=== PATIENT | female | born 1975 | race African-American/Black ===

== ENCOUNTER 2016-08-10 18:49 | Emergency (ER) | payer MEDICAID, OTHER ==
[~2016-08-10] VITALS: Ht 157.5 cm; Wt 145.0 kg
[~2016-08-10 18:49] MED LIST: CARV3.125 PO; FERR324T4 PO; GUAI600 PO; HYDR-2768 PO; LEVA750T PO; NIFE1TAB85 PO; PRAV40 PO; PRED20 PO; SYMB160A INH
[2016-08-10 18:52] VITALS: BP 193/110; PULSE 105; RESP 28; TEMP 98; O2SAT 98
--- NOTE | 2016-08-10 19:25 | PD ---
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 Patient states she has had her menstrual cycle since July 30 which is atypical for her. It has been heavy with significant cramping since it began on the but it has become severe over the last 2-3 days. Patient has had some urinary frequency and urgency. States she has never had pain like this before. Pain is a 10 out of 10, sharp, stabbing. She has no other abdominal surgeries. No other symptoms to report. PFSH Past Medical History Anemia: Yes Asthma: Yes Blood Disorders: No Heart Rhythm Problems: No Cancer: No Cardiovascular Problems: Yes High Cholesterol: No Chemotherapy: No Chest Pain: Yes Congestive Heart Failure: No COPD: No Diabetes: No Diminished Hearing: No Endocrine: No Genitourinary: Yes (gerd) Hypertension: Yes Immune Disorder: No Musculoskeletal: No Neurologic: No Psychiatric: No Reproductive: No Respiratory: No Immunizations Current: Yes Radiation Therapy: No Sleep Apnea: No Thyroid Disease: No : 2 Para: 2 Tubal Ligation: Yes Past Surgical History Section: Yes Gynecologic Surgery: Yes (CSECTION) Social History Alcohol Use: No Tobacco Use: No Substance Use: No Allergies-Medications (Allergen,Severity, Reaction): Coded Allergies: No Known Allergies (Unverified , 08/10/16) Reported Meds & Prescriptions Reported Meds & Active Scripts Active Physical Exam Narrative GENERAL: Obese female patient, ambulatory and in mild distress, tearful, secondary to pain SKIN: Warm and dry. HEAD: Atraumatic. Normocephalic. EYES: Pupils equal and round. No scleral icterus. No injection or drainage. ENT: No nasal bleeding or discharge. Mucous membranes pink and moist. NECK: Tachypneic midline. No JVD. CARDIOVASCULAR: Tachycardic rate and rhythm. No murmur appreciated. RESPIRATORY: No accessory muscle use. Diminished to auscultation. Breath sounds equal bilaterally. GASTROINTESTINAL: Abdomen rotund, soft, nondistended. Right lower quadrant and suprapubic tenderness to palpation. Hepatic and splenic margins not palpable. MUSCULOSKELETAL: No obvious deformities. No clubbing. No cyanosis. No edema. NEUROLOGICAL: Awake and alert. No obvious cranial nerve deficits. Motor grossly within normal limits. Normal speech. PSYCHIATRIC: Appropriate mood and affect; insight and judgment normal. Data Data Last Documented VS Vital Signs Date Time Temp Pulse Resp B/P Pulse Ox O2 Delivery O2 Flow Rate FiO2 08/10/16 19:51 100 20 08/10/16 18:52 98.0 193/110 98 Room Air Orders Beta Hcg (Quant/Titer) (08/10/16 19:22) Complete Blood Count With Diff (08/10/16 19:22) Comprehensive Metabolic Panel (08/10/16 19:22) Lipase (08/10/16 19:22) Prothrombin Time / Inr (Pt) (08/10/16:22) Act Partial Throm Time (Ptt) (08/10/16 19:22) Urinalysis - C+S If Indicated (08/10/16 19:22) Electrocardiogram (08/10/16 19:22) Ed Urine Pregnancytest Poc (08/10/16 19:22) Type And Screen (08/10/16 19:25) [facility] Medical Decision Making Medical Screen Exam Complete: Yes Emergency Medical Condition: Yes Medical Record Reviewed: Yes Differential Diagnosis Ectopic versus ovarian cyst versus ovarian torsion versus UTI versus renal calculi versus dysmenorrhea Narrative Course 40-year-old female presents to emergency department for evaluation. Workup was initiated in triage. Once a medical bed becomes available, patient will be transferred and care assumed by the provider. Condition: Stable Mary Fuentes Aug 10, 2016 19:25
[2016-08-10 20:23] LABS: AUTOMATED NEUTROPHIL # 8.7 TH/MM3 (1.8-7.7); BASOPHIL % 0.3 % (0.0-2.0); EOSINOPHIL # 0.1 TH/MM3 (0-0.4); HEMATOCRIT 30.6 % (35.0-46.0); LYMPH % 18.8 % (9.0-44.0); LYMPHOCYTE # 2.2 TH/MM3 (1.0-4.8); MEAN CELL VOLUME 78.2 FL (80.0-100.0); MEAN CORPUSCULAR HEMOGLOBIN 24.9 PG (27.0-34.0); MEAN CORPUSCULAR HGB CONC 31.8 % (32.0-36.0); MONO % 5.9 % (0.0-8.0); PLATELET COUNT 390 TH/MM3 (150-450); RED BLOOD COUNT 3.91 MIL/MM3 (4.00-5.30); RED CELL DISTRIBUTION WIDTH 17.2 % (11.6-17.2); WHITE BLOOD COUNT 11.7 TH/MM3 (4.0-11.0)
[2016-08-10 20:26] LABS: HEMO FLAGS AUTO DIFF
[2016-08-10 20:33] LABS: BLOOD, URINE LARGE (NEG); COMMENT (UR) CULTURE INDICATED; CULTURE IF INDICATED CULTURE INDICATED; GLUCOSE,URINE NEG (NEG); KETONE, URINE TRACE mg/dL (NEG); MUCUS URINE FEW /lpf (OCC); NITRITE,URINE NEG (NEG); PH, URINE 5.5 (5.0-8.5)
[2016-08-10 20:34] LABS: URINE COLOR RED (YELLW/STRAW)
[2016-08-10 20:40] LABS: APTT (PATIENT) 26.7 SEC (24.3-30.1); PROTHROMBIN TIME - PATIENT 10.7 SEC (9.8-11.6)
[2016-08-10 20:44] LABS: ANION GAP 7 MEQ/L (5-15); AST (GOT) 11 U/L (15-37); BICARBONATE 26.8 MEQ/L (21.0-32.0); BLOOD UREA NITROGEN 11 MG/DL (7-18); CHLORIDE 106 MEQ/L (98-107); GLOMERULAR FILTRATION RATE 70 ML/MIN (>89); POTASSIUM 3.6 MEQ/L (3.5-5.1); SODIUM (NA) 140 MEQ/L (136-145)
[2016-08-10] MEDS ORDERED: HYDROmorphone HCL PF 1 MG/ML VIAL IV PUSH ONE (20:45)
[2016-08-10 20:49] LABS: ALKALINE PHOSPHATASE 84 U/L (45-117); ALT (GPT) 18 U/L (10-53); BETA HCG QUANT LESS THAN 1 MIU/ML (0-5); TOTAL BILIRUBIN ADULT 0.2 MG/DL (0.2-1.0)
[2016-08-10 20:57] LABS: SCAN/DIFF AUTO DIFF CONFIRMED
[2016-08-10] MEDS ORDERED: IOHEXOL 350 MG/ML 10 ML VIAL (for RAD DIAG) IV ONE (21:16)
--- NOTE | 2016-08-10 21:24 | RADRPT ---
EXAM DATE/TIME: 08/10/2016 21:03 [facility] COMPARISON: No previous studies available for comparison. INDICATIONS : Right lower quadrant pain for two weeks IV CONTRAST: 95 cc Omnipaque 350 (iohexol) IV ORAL CONTRAST: No oral contrast ingested. RADIATION DOSE: 44.31 CTDIvol (mGy) MEDICAL HISTORY : Cardiovascular disease. Hypertension. Asthma. SURGICAL HISTORY : section. Tubal ligation. ENCOUNTER: Initial ACUITY: 2 weeks PAIN SCALE: 10/10 LOCATION: Right lower quadrant TECHNIQUE: Volumetric scanning of the abdomen and pelvis was performed. Using automated exposure control and ad justment of the mA and/or kV according to patient size, radiation dose was kept as low as reasonably achievable to obtain optimal diagnostic quality images. FINDINGS: LOWER LUNGS: The visualized lower lungs are clear. LIVER: Homogeneous density without lesion. There is no dilation of the biliary tree. No calcified gallston es. SPLEEN: Normal size without lesion. PANCREAS: Within normal limits. KIDNEYS: Normal in size and shape. There is no mass, stone or hydronephrosis. ADRENAL GLANDS: Within normal limits. VASCULAR: There is no aortic aneurysm. BOWEL/MESENTERY: There is moderate right and left-sided diverticulosis of the colon. No acute inflammatory changes are seen. The appendix is well-visualized, normal. ABDOMINAL WALL: Within normal limits. RETROPERITONEUM: There is no lymphadenopathy. BLADDER: No wall thickening or mass. REPRODUCTIVE: There is fluid in the uterine cavity. 2.6 cm cyst seen of the left ovary. There is no free fluid in t he pelvic cavity. INGUINAL: There is no lymphadenopathy or hernia. MUSCULOSKELETAL: No acute bony abnormality seen. CONCLUSION: 1. No acute abnormality seen within the abdomen or pelvis. 2. Moderate diffuse diverticulosis of the colon. No diverticulitis. 3. Normal appendix. 4. 2.6 cm benign appearing cyst of the left ovary. Nonspecific fluid in the uterine cavity. Michael Davalos MD on August 10, 2016 at 21:20 Board Certified Radiologist. This report was verified electronically.
--- NOTE | 2016-08-10 21:24 | PD ---
Data Data Last Documented VS Vital Signs Date Time Temp Pulse Resp B/P Pulse Ox O2 Delivery O2 Flow Rate FiO2 08/10/16 21:56 94 18 145/89 96 Room Air 08/10/16 18:52 98.0 Orders Beta Hcg (Quant/Titer) (08/10/16 19:22) Complete Blood Count With Diff (08/10/16 19:22) Comprehensive Metabolic Panel (08/10/16 19:22) Lipase (08/10/16 19:22) Prothrombin Time / Inr (Pt) (08/10/16 19:22) Act Partial Throm Time (Ptt) (08/10/16 19:22) Urinalysis - C+S If Indicated (08/10/16:22) Electrocardiogram (08/10/16:) Ed Urine Pregnancytest Poc (08/10/16 19:22) Type And Screen (08/10/16 19:25) Urine Culture (08/10/16 20:00) Hydromorphone Pf Inj (Dilaudid Pf Inj) (08/10/16 20:45) Ct Abd/Pel W Iv Contrast(Rout) (08/10/16 20:52) Iohexol 350 Inj (Omnipaque 350 Inj) (08/10/16 21:16) Us Pelvis Comp W Doppler (08/10/16 ) Labs Laboratory Tests Test 08/10/16 20:00 White Blood Count 11.7 TH/MM3 Red Blood Count 3.91 MIL/MM3 Hemoglobin 9.7 GM/DL Hematocrit 30.6 % Mean Corpuscular Volume 78.2 FL Mean Corpuscular Hemoglobin 24.9 PG Mean Corpuscular Hemoglobin 31.8 % Concent Red Cell Distribution Width 17.2 % Platelet Count 390 TH/MM3 Mean Platelet Volume 8.6 FL Neutrophils (%) (Auto) 74.0 % Lymphocytes (%) (Auto) 18.8 % Monocytes (%) (Auto) 5.9 % Eosinophils (%) (Auto) 1.0 % Basophils (%) (Auto) 0.3 % Neutrophils # (Auto) 8.7 TH/MM3 Lymphocytes # (Auto) 2.2 TH/MM3 Monocytes # (Auto) 0.7 TH/MM3 Eosinophils # (Auto) 0.1 TH/MM3 Basophils # (Auto) 0.0 TH/MM3 CBC Comment AUTO DIFF Differential Comment AUTO DIFF CONFIRMED Prothrombin Time 10.7 SEC Prothromb Time International 1.0 RATIO Ratio Activated Partial 26.7 SEC Thromboplast Time Urine Color RED Urine Turbidity HAZY Urine pH 5.5 Urine Specific [place] 1.021 Urine Protein 100 mg/dL Urine Glucose (UA) NEG mg/dL Urine Ketones TRACE mg/dL Urine Occult Blood LARGE Urine Nitrite NEG Urine Bilirubin NEG Urine Urobilinogen LESS THAN 2.0 MG/DL Urine Leukocyte Esterase MOD Urine RBC /hpf Urine WBC 36 /hpf Urine Mucus FEW /lpf Microscopic Urinalysis Comment CULTURE INDICATED Sodium Level 140 MEQ/L Potassium Level 3.6 MEQ/L Chloride Level 106 MEQ/L Carbon Dioxide Level 26.8 MEQ/L Anion Gap 7 MEQ/L Blood Urea Nitrogen 11 MG/DL Creatinine 1.05 MG/DL Estimat Glomerular Filtration 70 ML/MIN Rate Random Glucose 92 MG/DL Calcium Level 8.7 MG/DL Total Bilirubin 0.2 MG/DL Aspartate Amino Transf 11 U/L (AST/SGOT) Alanine Aminotransferase 18 U/L (ALT/SGPT) Alkaline Phosphatase 84 U/L Total Protein 8.0 GM/DL Albumin 3.4 GM/DL Lipase 167 U/L Human Chorionic Gonadotropin, LESS THAN 1 Quant MIU/ML Blood Type O POSITIVE Antibody Screen NEGATIVE Blood Bank Comment [facility] Medical Record Reviewed: Yes Supervised Visit with CLEO: Yes Narrative Course I, Dr. Martin, have reviewed the advance practice practitioner's documentation and am in agreement, met with the patient face to face, made the diagnosis, and the medical decision making was done by me. *My assessment and Findings: The patient reports vaginal bleeding for 11 days. She uses a tampon and a pad at the same time and uses approx 6 per day. 3 days of severe RLQ pain is reported preceded by several days of mild pain. No n/v/d. Decreased oral intake 2/2 pain. Depoprovera shot given 6 weeks prior for hx menometrorrhagia. Due to persistent bleeding patient is a candidate for hysterectomy according to her engineering associate in [place], Dr Perez. Pt has follow up established with Dr Perez. Pt denies fever. CBC & BMP Diagram 08/10/16 20:00 LFTs are normal Lipase normal Beta hCG less than 1 Urinalysis reveals hematuria without UTI Coags normal Diagnosis Primary Impression: Uterine fibroid Qualified Code: D25.9 - Uterine leiomyoma, unspecified location Additional Impressions: Vaginal bleeding Right ovarian cyst Referrals: [facility] 2 days Additional Instruction: You have a choice when it comes to health care, and we are glad that you chose [email or web address]. Hopefully, we have met your expectations on today's visit. You are welcome to return to [email or web address] at any time, as we are committed to meeting the health care needs of our community. Med/Other Pt SpecificInfo: Prescription(s) given Scripts Hydrocodone-Acetaminophen (Lortab)7.5-325 Mg Tab1-2 Tab PO Q6H PRN (PAIN SCALE 6 TO 10) #15 TAB Ref 0 Prov:Damon Martin MD 08/10/16 Disposition: 01 DISCHARGE HOME Condition: Stable Damon Martin MD Aug 10, 2016 21:24
[2016-08-10 21:56] VITALS: BP 145/89; PULSE 94; RESP 18; O2SAT 96
--- NOTE | 2016-08-10 22:20 | RADRPT ---
EXAM DATE/TIME: 08/10/2016 21:30 [facility] COMPARISON: No previous studies available for comparison. INDICATIONS : Pelvic pain and bleeding. MEDICAL HISTORY : Hypertension. Gastroesophageal reflux disease. SURGICAL HISTORY : Tubal ligation. section. ENCOUNTER: Initial ACUITY: 3 days PAIN SCORE: 5/10 LOCATION: Bilateral pelvis MEASUREMENTS: UTERUS: 16.4 x 7.5 x 8.5 cm ENDOMETRIAL STRIPE: 11 mm RIGHT OVARY: 2.8 x 2.6 x 2.5 cm LEFT OVARY: 4.2 x 3.1 x 3.4 cm FINDINGS: UTERUS: 2.4 cm subserosal fibroid of the body. There are small nabothian cysts of the lower uterine segment/c ervix. RIGHT OVARY: Ovary contains no mass or significant cystic lesion. LEFT OVARY: 2.2 cm simple cyst. MISCELLANEOUS: No free fluid. CONCLUSION: 1. Small uterine fibroid 2. Simple, benign appearing cyst of the right ovary. Michael Davalos MD on August 10, 2016 at 22:16 Board Certified Radiologist. This report was verified electronically.
--- NOTE | 2016-08-10 22:22 | EKG ---
Date Performed: 08/10/2016 Time Performed: 20:20:05 PTAGE: 40 years EKG: Sinus rhythm MINIMAL VOLTAGE CRITERIA FOR LVH, CONSIDER NORMAL VARIANT BORDERLINE ECG PREVIOUS TRACING : 03/16/2016 21.54 Compared to prior tracing no significant change DOCTOR: Evan Martin Interpretating Date/Time 08/10/2016 22:20:17
[2016-08-10] MEDS ORDERED: HYDR-3534 PO (22:41)
== END 2016-08-10 23:24 | disposition home or self-care (01) ==
LOC: NEPC 18:49
DX: D25.9 Leiomyoma of uterus, unspecified (principal); N93.9 Abnormal uterine and vaginal bleeding, unspecified; N83.201 Unspecified ovarian cyst, right side; I10 Essential (primary) hypertension; J45.909 Unspecified asthma, uncomplicated; K21.9 Gastro-esophageal reflux disease without esophagitis; D64.9 Anemia, unspecified; R00.0 Tachycardia, unspecified
CPT/HCPCS: 74177; 76856; 80053; 81001; 83690; 84702; 84703; 85025; 85610; 85730; 86850; 86900; 86901; 87086; 93005; 93975; 96374; 99284; J1170; Q9967

== ENCOUNTER 2016-10-25 14:43 | Emergency (ER) | payer OTHER ==
[~2016-10-25] VITALS: Ht 162.6 cm; Wt 153.5 kg
[~2016-10-25 14:43] MED LIST changes: -CARV3.125 PO; -FERR324T4 PO; -GUAI600 PO; -HYDR-2768 PO; +HYDR-3534 PO; -LEVA750T PO; -NIFE1TAB85 PO; -PRAV40 PO; -PRED20 PO; -SYMB160A INH
[2016-10-25 14:45] VITALS: BP 198/101; PULSE 89; RESP 18; TEMP 98.2; O2SAT 99
--- NOTE | 2016-10-25 15:31 | PD ---
HPI . eye irritation (left) Chief Complaint: Eye Problems/Injury Time Seen by Provider: 15:31 Travel History International Travel<30 days: No Contact w/Intl Traveler<30days: No Traveled to known affect area: No History of Present Illness HPI 40-year-old female here with complaints of left eye irritation. Patient says that she thinks something got into her eye and started causing some irritation. She is uncertain if anything actually got in there. She denies any foreign body sensation. She decided to come to the emergency department because around 2:00pm her eyes started getting red and swollen. She denies any vision changes or pain. PFSH Past Medical History Anemia: Yes Asthma: Yes Blood Disorders: No Heart Rhythm Problems: No Cancer: No Cardiovascular Problems: Yes High Cholesterol: No Chemotherapy: No Chest Pain: Yes Congestive Heart Failure: No COPD: No Diabetes: No Diminished Hearing: No Endocrine: No Genitourinary: Yes (gerd) Hypertension: Yes Immune Disorder: No Musculoskeletal: No Neurologic: No Psychiatric: No Reproductive: No Respiratory: No Immunizations Current: Yes Radiation Therapy: No Sleep Apnea: No Thyroid Disease: No ?: Not LMP: 07/2016 : 2 Para: 2 Tubal Ligation: Yes Past Surgical History Section: Yes Gynecologic Surgery: Yes (CSECTION) Social History Alcohol Use: No Tobacco Use: No Substance Use: No Allergies-Medications (Allergen,Severity, Reaction): Coded Allergies: Tramadol (Verified Allergy, Severe, ITCHING, 10/25/16) Reported Meds & Prescriptions Reported Meds & Active Scripts Active Erythromycin Opth Oint 5 Mg/Gm Oint 1 Applic LEFT EYE BID 5 Days Reported Lisinopril 10 Mg Tab 10 Mg PO DAILY Review of Systems General / Constitutional: No: Fever Eyes: Positive: Redness, Tearing, No: Visual changes HENT: No: Headaches Cardiovascular: No: Chest Pain or Discomfort Respiratory: No: Shortness of Breath Gastrointestinal: No: Abdominal Pain Genitourinary: No: Dysuria Musculoskeletal: No: Pain Skin: No Rash Neurologic: No: Weakness Psychiatric: No: Depression Endocrine: No: Polydipsia Hematologic/Lymphatic: No: Easy Bruising Physical Exam Narrative GENERAL: AAO x 3, no acute distress, Well-nourished, well-developed patient. SKIN: Warm and dry. No visible rashes or bruising. HEAD: Normocephalic and atraumatic. EYES: No scleral icterus. EOM intact, PERRLA, Left eye erythematous, no fb seen , eye staining no corneal abrasion, there is some injection of the left eye and clear drainage on exam ENT: No nasal drainage noted. Mucous membranes pink. Airway patent. NECK: Supple, trachea midline. No JVD. CARDIOVASCULAR: Regular rate and rhythm without murmurs, gallops, or rubs. RESPIRATORY: Breath sounds equal bilaterally. No accessory muscle use. No rhonchi or rales. GASTROINTESTINAL: Abdomen soft, non-tender, nondistended. EXTREMITIES: No cyanosis or edema. BACK: Nontender without obvious deformity. No CVA tenderness. PSYCH: AAO x 3, normal affect. Data Data Last Documented VS Vital Signs Date Time Temp Pulse Resp B/P Pulse Ox O2 Delivery O2 Flow Rate FiO2 10/25/16 17:23 196/93 10/25/16 14:45 98.2 89 18 99 Orders Eye Irrigation (10/25/16 15:46) MDM Medical Decision Making Medical Screen Exam Complete: Yes Emergency Medical Condition: Yes Medical Record Reviewed: Yes Differential Diagnosis conjunctivitis, fb, less likely corneal abrasion Narrative Course 40-year-old female here with complaints of left eye irritation. Patient says that she thinks something got into her eye and started causing some irritation. She is uncertain if anything actually got in there. She denies any foreign body sensation. She decided to come to the emergency department because around 2:00pm her eyes started getting red and swollen. She denies any vision changes or pain. Patient seen and examined. She does have some erythema, injection and tearing from her left eye. Eye examination performed and no foreign body visualized. Eye staining performed and there is no corneal abrasion. Recommend eye irrigation. 1715: patient states eye feels much better I will discharge home with some eye antibiotics to cover for conjunctivitis. I recommend follow-up with an electrochemist in the next 3-5 days, if her symptoms persist. Patient verbalized understanding of instructions, questions were answered, and thanked me for their care. I advised them if their condition worsens, please return to the nearest emergency room for further care. Procedures Procedure Narrative Fluorescein eye staining procedure: Left eye proparacaine drops instilled into the left eye Local anesthesia was accomplished. the eye was inspected for any type of obvious foreign body: None seen fluorescein stain was applied to look for corneal abrasion: None seen Diagnosis Primary Impression: Conjunctivitis Qualified Code: H10.32 - Acute conjunctivitis of left eye, unspecified acute conjunctivitis type Patient Instructions: General Instructions Additional Instructions: Please return to emergency department if your symptoms return or worsen. Follow up with your primary care provider. Take medications as prescribed. Please see an electrochemist in the next 3-5 days, if your symptoms do not improve. Return to the emergency department if your vision worsens or if you develop sudden onset of eye pain. Med/Other Pt SpecificInfo: Prescription(s) given Scripts Erythromycin Opth Oint 5 Mg/Gm Oint1 Applic LEFT EYE BID 5 Days Ref 0 Prov:Aniya Stauffer DO 10/25/16 Disposition: 01 DISCHARGE HOME Condition: Stable Roxanne Cisneros October 25, 2016 15:31
[2016-10-25] MEDS ORDERED: LISI10TA3 PO (15:39)
[2016-10-25] MEDS ORDERED: ERYTOIN10 LEFT EYE (17:14)
[2016-10-25 17:23] VITALS: BP 196/93
== END 2016-10-25 17:16 | disposition home or self-care (01) ==
LOC: NEPK 14:43
DX: H10.32 Unspecified acute conjunctivitis, left eye (principal); D64.9 Anemia, unspecified; J45.909 Unspecified asthma, uncomplicated; I10 Essential (primary) hypertension
CPT/HCPCS: 99283

== ENCOUNTER 2017-04-06 23:35 | Emergency (ER) | payer OTHER ==
[~2017-04-06] VITALS: Ht 162.6 cm; Wt 152.0 kg
[~2017-04-06 23:35] MED LIST changes: +ERYTOIN10 LEFT EYE; -HYDR-3534 PO; +LISI10TA3 PO
[2017-04-06 23:37] VITALS: BP 165/83; PULSE 100; RESP 16; TEMP 98.9; O2SAT 98
[2017-04-07 00:24] LABS: BACTERIA, URINE RARE /hpf; BLOOD, URINE MOD (NEG); COMMENT (UR) CULT NOT INDICATED; CULTURE IF INDICATED CULT NOT INDICATED; GLUCOSE,URINE NEG (NEG); KETONE, URINE NEG (NEG); MUCUS URINE FEW /lpf (OCC); NITRITE,URINE NEG (NEG); PH, URINE 5.5 (5.0-8.5); SQUAMOUS EPITHELIAL CELL URINE 7 /hpf (0-5); URINE COLOR YELLOW (YELLW/STRAW)
--- NOTE | 2017-04-07 00:45 | PD ---
HPI Chief Complaint: Flank/Kidney Pain Time Seen by Provider: 00:32 Travel History International Travel<30 days: No Contact w/Intl Traveler<30days: No Traveled to known affect area: No History of Present Illness HPI Patient is a 41-year-old female presents emergency Department with right flank pain radiating up into her right shoulder and down into her right groin. Patient states that she's also been having some dysuria at the end of her stream. Denies any blood in the urine denies any fevers denies any vomiting. She does endorse mild nausea. States symptoms been going on-and-off for a few weeks. That fairly severe tonight but on arrival to emergency department is somewhat resolving. States she's never had this pain prior to a few weeks ago. Denies any abdominal surgeries denies any chest pain shortness of breath vomiting or diarrhea or constipation. Symptoms are mild, waxing and waning, for the past few weeks. Right flank. PFSH Past Medical History Anemia: Yes Asthma: Yes Blood Disorders: No Heart Rhythm Problems: No Cancer: No Cardiovascular Problems: Yes High Cholesterol: No Chemotherapy: No Chest Pain: Yes Congestive Heart Failure: No COPD: No Diabetes: No Diminished Hearing: No Endocrine: No Genitourinary: Yes (gerd) Hypertension: Yes Immune Disorder: No Musculoskeletal: No Neurologic: No Psychiatric: No Reproductive: No Respiratory: No Immunizations Current: Yes Radiation Therapy: No Sleep Apnea: No Thyroid Disease: No Tetanus Vaccination: < 5 Years Influenza Vaccination: No ?: Not : 2 Para: 2 Tubal Ligation: Yes Past Surgical History Section: Yes Gynecologic Surgery: Yes (CSECTION) Other Surgery: No Social History Alcohol Use: No Tobacco Use: No Substance Use: No Allergies-Medications (Allergen,Severity, Reaction): Coded Allergies: tramadol (Verified Allergy, Severe, ITCHING, 04/06/17) Reported Meds & Prescriptions Reported Meds & Active Scripts Active Flexeril (Cyclobenzaprine HCl) 10 Mg Tab 10 Mg PO TID Reported Ferrous Sulfate 325 Mg (65 Mg Iron) Tablet 325 Mg PO TIDPC Amlodipine (Amlodipine Besylate) 5 Mg Tab 5 Mg PO DAILY Review of Systems Except as stated in HPI: all other systems reviewed are Neg Physical Exam Narrative GENERAL: Well-developed well-nourished, morbidly obese less than female in no obvious distress. SKIN: Focused skin assessment warm/dry. HEAD: Atraumatic. Normocephalic. EYES: Pupils equal and round. No scleral icterus. No injection or drainage. ENT: No nasal bleeding or discharge. Mucous membranes pink and moist. NECK: Trachea midline. No JVD. CARDIOVASCULAR: Regular rate and rhythm. No murmur appreciated. RESPIRATORY: No accessory muscle use. Clear to auscultation. Breath sounds equal bilaterally. GASTROINTESTINAL: Abdomen soft, non-tender, nondistended. Hepatic and splenic margins not palpable. Donaldson sign negative, no rebound no percussive tenderness , no CVA tenderness. No masses felt no hepatosplenomegaly. MUSCULOSKELETAL: No obvious deformities. No clubbing. No cyanosis. No edema. NEUROLOGICAL: Awake and alert. No obvious cranial nerve deficits. Motor grossly within normal limits. Normal speech. PSYCHIATRIC: Appropriate mood and affect; insight and judgment normal. Data Data Last Documented VS Vital Signs Date Time Temp Pulse Resp B/P (MAP) Pulse Ox O2 Delivery O2 Flow Rate FiO2 04/07/17 05:12 04/07/17 01:08 20 99 Room Air 04/06/17 23:37 98.9 100 Orders Orders Urinalysis - C+S If Indicated (04/06/17 23:51) Complete Blood Count With Diff (04/07/17 00:53) Comprehensive Metabolic Panel (04/07/17 00:53) Lipase (04/07/17 00:53) Iv Access Insert/Monitor (04/07/17 00:53) Ecg Monitoring (04/07/17 00:53) Oximetry (04/07/17 00:53) Sodium Chloride 0.9% Flush (Ns Flush) (04/07/17 01:00) Ketorolac Inj (Toradol Inj) (04/07/17 01:00) Ct Abd/Pel W Iv Contrast(Rout) (04/07/17 ) Iohexol 350 Inj (Omnipaque 350 Inj) (04/07/17 02:55) Ed Discharge Order (04/07/17 04:08) Labs Laboratory Tests Test 04/06/17 23:57 04/07/17 00:45 Urine Color YELLOW Urine Turbidity HAZY Urine pH 5.5 Urine Specific [place] 1.028 Urine Protein TRACE mg/dL Urine Glucose (UA) NEG mg/dL Urine Ketones NEG mg/dL Urine Occult Blood MOD Urine Nitrite NEG Urine Bilirubin NEG Urine Urobilinogen 2.0 MG/DL Urine Leukocyte Esterase NEG Urine RBC LESS THAN 1 /hpf Urine WBC 5 /hpf Urine Squamous Epithelial Cells 7 /hpf Urine Bacteria RARE /hpf Urine Mucus FEW /lpf Microscopic Urinalysis Comment CULT NOT INDICATED White Blood Count 10.0 TH/MM3 Red Blood Count 4.85 MIL/MM3 Hemoglobin 11.8 GM/DL Hematocrit 36.2 % Mean Corpuscular Volume 74.7 FL Mean Corpuscular Hemoglobin 24.4 PG Mean Corpuscular Hemoglobin Concent 32.7 % Red Cell Distribution Width 19.2 % Platelet Count 370 TH/MM3 Mean Platelet Volume 8.6 FL Neutrophils (%) (Auto) 74.6 % Lymphocytes (%) (Auto) 18.4 % Monocytes (%) (Auto) 4.1 % Eosinophils (%) (Auto) 2.5 % Basophils (%) (Auto) 0.4 % Neutrophils # (Auto) 7.5 TH/MM3 Lymphocytes # (Auto) 1.8 TH/MM3 Monocytes # (Auto) 0.4 TH/MM3 Eosinophils # (Auto) 0.3 TH/MM3 Basophils # (Auto) 0.0 TH/MM3 CBC Comment DIFF FINAL Differential Comment Blood Urea Nitrogen 14 MG/DL Creatinine 1.33 MG/DL Random Glucose 129 MG/DL Total Protein 7.8 GM/DL Albumin 3.2 GM/DL Calcium Level 8.5 MG/DL Alkaline Phosphatase 96 U/L Aspartate Amino Transf (AST/SGOT) 20 U/L Alanine Aminotransferase (ALT/SGPT) 19 U/L Total Bilirubin 0.3 MG/DL Sodium Level 140 MEQ/L Potassium Level 4.1 MEQ/L Chloride Level 109 MEQ/L Carbon Dioxide Level 22.5 MEQ/L Anion Gap 9 MEQ/L Estimat Glomerular Filtration Rate 53 ML/MIN Lipase 191 U/L MDM Medical Decision Making Medical Screen Exam Complete: Yes Emergency Medical Condition: Yes Differential Diagnosis Pancreatitis, cholecystitis, kidney stone, diverticulitis, diverticulosis, urinary tract infection. Narrative Course Patient roomed in emergency department, she appears well and in no distress. Abdomen is benign, pain is fairly well-controlled here now. Patient labs are reassuring, CT abdomen and pelvis shows no definitive cause of her abdominal pain. Discussed with the patient and recommended exam but she defers this at this time would rather follow up with her [employer] [employer]. At this time she is stable for discharge, discussed symptomatic management home and returned ED criteria. Diagnosis Primary Impression: Right flank pain Referrals: [facility] Additional Instructions: Follow up with the [facility] or your regular physician within one week. Med/Other Pt SpecificInfo: Prescription(s) given Scripts Cyclobenzaprine (Flexeril) 10 Mg Tab 10 MG PO TID for Muscle Spasm, #20 TAB 0 Refills Prov: Ashwin Knight MD 04/07/17 Disposition: 01 DISCHARGE HOME Condition: Stable Ashwin Knight MD Apr 07, 2017 00:45
[2017-04-07] MEDS ORDERED: AMLO5TAB2 PO (00:52)
[2017-04-07] MEDS ORDERED: SODIUM CHLORIDE 0.9% FLUSH 10 ML FLUSH IV FLUSH PRN (01:00)
[2017-04-07] MEDS ORDERED: KETOROLAC TROMETHAMINE 30 MG/ML (IVP) VIAL IVP ONE (01:00)
[2017-04-07 01:08] VITALS: RESP 20; O2SAT 99
[2017-04-07] MEDS ORDERED: FERR325T8 PO (01:11)
[2017-04-07 01:31] LABS: ALKALINE PHOSPHATASE 96 U/L (45-117); TOTAL BILIRUBIN ADULT 0.3 MG/DL (0.2-1.0)
[2017-04-07 01:33] LABS: AUTOMATED NEUTROPHIL # 7.5 TH/MM3 (1.8-7.7); BASOPHIL % 0.4 % (0.0-2.0); EOSINOPHIL # 0.3 TH/MM3 (0-0.4); EOSINOPHIL % 2.5 % (0.0-4.0); HEMATOCRIT 36.2 % (35.0-46.0); HEMO FLAGS DIFF FINAL; LYMPH % 18.4 % (9.0-44.0); LYMPHOCYTE # 1.8 TH/MM3 (1.0-4.8); MEAN CELL VOLUME 74.7 FL (80.0-100.0); MEAN CORPUSCULAR HEMOGLOBIN 24.4 PG (27.0-34.0); MEAN CORPUSCULAR HGB CONC 32.7 % (32.0-36.0); MONO % 4.1 % (0.0-8.0); NEUT % 74.6 % (16.0-70.0); PLATELET COUNT 370 TH/MM3 (150-450); RED BLOOD COUNT 4.85 MIL/MM3 (4.00-5.30); RED CELL DISTRIBUTION WIDTH 19.2 % (11.6-17.2)
[2017-04-07 01:34] LABS: ALT (GPT) 19 U/L (10-53); ANION GAP 9 MEQ/L (5-15); AST (GOT) 20 U/L (15-37); BICARBONATE 22.5 MEQ/L (21.0-32.0); BLOOD UREA NITROGEN 14 MG/DL (7-18); CHLORIDE 109 MEQ/L (98-107); GLOMERULAR FILTRATION RATE 53 ML/MIN (>89); POTASSIUM 4.1 MEQ/L (3.5-5.1); SODIUM (NA) 140 MEQ/L (136-145)
[2017-04-07] MEDS ORDERED: IOHEXOL 350 MG/ML 10 ML VIAL (for RAD DIAG) IVCONTRAST ONE (02:55)
--- NOTE | 2017-04-07 03:57 | RADRPT ---
EXAM DATE/TIME: 04/07/2017 02:40 [facility] COMPARISON: CT ABDOMEN & PELVIS W CONTRAST, August 10, 2016, 21:03. INDICATIONS : Left flank pain with dysuria. IV CONTRAST: 100 cc Omnipaque 350 (iohexol) IV ORAL CONTRAST: No oral contrast ingested. RADIATION DOSE: 38.39 CTDIvol (mGy) ; Patient body habitus MEDICAL HISTORY : Hypertension. Gastroesophageal reflux disease. SURGICAL HISTORY : Tubal ligation. section. ENCOUNTER: Initial ACUITY: 3 weeks PAIN SCALE: 6/10 LOCATION: Left flank TECHNIQUE: Volumetric scanning of the abdomen and pelvis was performed. Using automated exposure control and ad justment of the mA and/or kV according to patient size, radiation dose was kept as low as reasonably achievable to obtain optimal diagnostic quality images. DICOM format image data is available electro nically for review and comparison. FINDINGS: LOWER LUNGS: The visualized lower lungs are clear. LIVER: Homogeneous density without lesion. There is no dilation of the biliary tree. No calcified gallston es. SPLEEN: Normal size without lesion. PANCREAS: Within normal limits. KIDNEYS: Normal in size and shape. There is no mass, stone or hydronephrosis on the right. Punctate calculus upper pole left kidney measures 1-2 mm.. ADRENAL GLANDS: Within normal limits. VASCULAR: There is no aortic aneurysm. BOWEL/MESENTERY: Diverticulosis of the colon without diverticulitis. There is no free intraperitoneal air or fluid. ABDOMINAL WALL: Within normal limits. RETROPERITONEUM: There is no lymphadenopathy. BLADDER: No wall thickening or mass. REPRODUCTIVE: Enlarged uterus. INGUINAL: There is no lymphadenopathy or hernia. MUSCULOSKELETAL: Within normal limits for patient age. CONCLUSION: 1. Punctate nonobstructing left renal calculus. 2. Diverticulosis of the colon without diverticulitis. 3. Enlarged uterus. Lobo Rothman MD on April 07, 2017 at 3:53 Board Certified Radiologist. This report was verified electronically.
[2017-04-07] MEDS ORDERED: CYCL1TAB29 PO (04:09)
== END 2017-04-07 05:14 | disposition home or self-care (01) ==
LOC: NEPE 23:35
DX: R10.9 Unspecified abdominal pain (principal); I10 Essential (primary) hypertension
CPT/HCPCS: 74177; 80053; 81001; 83690; 85025; 96374; 99285; J1885; Q9967

== ENCOUNTER 2017-07-04 14:05 | Observation (INO) | payer OTHER ==
[~2017-07-04] VITALS: Ht 170.2 cm; Wt 110.0 kg
[2017-07-04] VITALS (7 sets, daily range): BP systolic 173–204; BP diastolic 79–99; PULSE 78–94; RESP 16–18; TEMP 97.8–98.1; O2SAT 97–100
[~2017-07-04 14:05] MED LIST changes: +AMLO5TAB2 PO; +CYCL10TA PO; -ERYTOIN10 LEFT EYE; +FERR325T18 PO; -LISI10TA3 PO
[2017-07-04] MEDS ORDERED: SODIUM CHLORIDE 0.9% FLUSH 10 ML FLUSH IVF PRN (14:30)
[2017-07-04] MEDS ORDERED: SYMB80AE INH (15:05)
[2017-07-04] MEDS ORDERED: VENTAER INH (15:05)
[2017-07-04 15:07] LABS: AUTOMATED NEUTROPHIL # 5.7 TH/MM3 (1.8-7.7); BASOPHIL # 0.1 TH/MM3 (0-0.2); BASOPHIL % 0.9 % (0.0-2.0); EOSINOPHIL # 0.1 TH/MM3 (0-0.4); EOSINOPHIL % 1.8 % (0.0-4.0); HEMATOCRIT 34.3 % (35.0-46.0); HEMOGLOBIN 11.2 GM/DL (11.6-15.3); LYMPH % 20.8 % (9.0-44.0); LYMPHOCYTE # 1.7 TH/MM3 (1.0-4.8); MEAN CELL VOLUME 77.6 FL (80.0-100.0); MEAN CORPUSCULAR HEMOGLOBIN 25.2 PG (27.0-34.0); MEAN CORPUSCULAR HGB CONC 32.5 % (32.0-36.0); MEAN PLATELET VOLUME 8.3 FL (7.0-11.0); MONO % 5.9 % (0.0-8.0); MONOCYTE # 0.5 TH/MM3 (0-0.9); NEUT % 70.6 % (16.0-70.0); PLATELET COUNT 356 TH/MM3 (150-450); RED BLOOD COUNT 4.42 MIL/MM3 (4.00-5.30); RED CELL DISTRIBUTION WIDTH 18.5 % (11.6-17.2)
[2017-07-04 15:24] LABS: D-DIMER 0.23 MG/L FEU (0.00-0.50); PROTHROMBIN TIME - PATIENT 10.6 SEC (9.8-11.6)
[2017-07-04 15:28] LABS: TROPONIN I LESS THAN 0.02 NG/ML (0.02-0.05)
--- NOTE | 2017-07-04 15:31 | RADRPT ---
EXAM DATE/TIME: 07/04/2017 14:29 [facility] COMPARISON: CHEST PA & LAT, March 16, 2016, 22:12. INDICATIONS : Chest pain. Smoke irritation. MEDICAL HISTORY : Hypertension. Gastroesophageal reflux disease. SURGICAL HISTORY : section. ENCOUNTER: Initial ACUITY: 1 day PAIN SCORE: 4/10 LOCATION: Bilateral chest FINDINGS: Portable AP view of the chest demonstrates a normal-sized cardiac silhouette. No effusion, consolidat ion, or pneumothorax is visualized. The bones and soft tissues demonstrate no acute abnormality. CONCLUSION: No acute cardiopulmonary abnormality is identified. Michael Dwyer MD on July 04, 2017 at 15:28 Board Certified Radiologist. This report was verified electronically.
[2017-07-04 15:37] LABS: BICARBONATE 22.4 MEQ/L (21.0-32.0); BLOOD UREA NITROGEN 15 MG/DL (7-18); CALCIUM 8.9 MG/DL (8.5-10.1); CHLORIDE 108 MEQ/L (98-107); CREATININE 1.03 MG/DL (0.50-1.00); GLOMERULAR FILTRATION RATE 71 ML/MIN (>89); GLUCOSE,RANDOM 84 MG/DL (74-106); LIPASE 181 U/L (73-393); MAGNESIUM 2.4 MG/DL (1.5-2.5); SODIUM (NA) 139 MEQ/L (136-145)
--- NOTE | 2017-07-04 16:09 | PD ---
HPI Chief Complaint: Chest Pain Time Seen by Provider: 14:17 Travel History International Travel<30 days: No Contact w/Intl Traveler<30days: No Traveled to known affect area: No History of Present Illness HPI 41-year-old female that presents to the ED for evaluation of chest pain. Patient came here by ambulance for evaluation of this. Patient reports that yesterday she wants going to her house when 1 of her neighbors with smoking in blue smoke on her face. Patient got angry in started having an asthma attack in she gave herself her inhalers which she developed right-sided chest pain at the same time. Per patient the symptoms are not improving with her treatments an she does not feel short of breath anymore but she does feel that the chest discomfort still present. She was not given nitroglycerin aspirin by ambulance in the nitroglycerin pretty much took care of the pain. She denies any history of heart disease. She does have a family history of heart disease denies ever smoking. She does have a history of hypertension however. She has had asthma all her life. She denies any abdominal pain. After vomiting. No urinary or bowel movement issues. No fevers chills or sweats. She states that what concerned her the most most of the right-sided pain is new and that she has never had that before. PFSH Past Medical History Anemia: Yes Asthma: Yes Blood Disorders: No Heart Rhythm Problems: No Cancer: No Cardiovascular Problems: Yes High Cholesterol: No Chemotherapy: No Chest Pain: Yes Congestive Heart Failure: No COPD: No Diabetes: No Diminished Hearing: No Endocrine: No Gastrointestinal Disorders: No Genitourinary: Yes (gerd) Hypertension: Yes Immune Disorder: No Implanted Vascular Access Dvce: No Musculoskeletal: No Neurologic: No Psychiatric: No Reproductive: No Respiratory: No Immunizations Current: Yes Radiation Therapy: No Sleep Apnea: No Thyroid Disease: No ?: Not : 2 Para: 2 Tubal Ligation: Yes Past Surgical History Section: Yes Gynecologic Surgery: Yes (CSECTION) Other Surgery: No Social History Alcohol Use: Yes (on occasion) Tobacco Use: No Substance Use: No Allergies-Medications (Allergen,Severity, Reaction): Coded Allergies: tramadol (Verified Allergy, Severe, ITCHING, 04/06/17) Reported Meds & Prescriptions Reported Meds & Active Scripts Active Flexeril (Cyclobenzaprine HCl) 10 Mg Tab 10 Mg PO TID Reported Symbicort Inh (Budesonide/Formoterol Fumarate) 80-4.5 Mcg/Act Aero 1 Puff INH Q12HR Ventolin Hfa 18 GM Inh (Albuterol Sulfate) 90 Mcg/Act Aer 2 Puff INH Q4-6H PRN Amlodipine (Amlodipine Besylate) 5 Mg Tab 5 Mg PO DAILY Review of Systems Except as stated in HPI: all other systems reviewed are Neg Physical Exam Narrative GENERAL: SKIN: Warm and dry. HEAD: Atraumatic. Normocephalic. EYES: Pupils equal and round. No scleral icterus. No injection or drainage. ENT: No nasal bleeding or discharge. Mucous membranes pink and moist. Tongue midline. No uvula deviation. NECK: Trachea midline. No JVD. CARDIOVASCULAR: Regular rate and rhythm. No murmurs, S3, S4. RESPIRATORY: No accessory muscle use. Clear to auscultation. Breath sounds equal bilaterally. GASTROINTESTINAL: Abdomen soft, non-tender, nondistended. Hepatic and splenic margins not palpable. MUSCULOSKELETAL: Extremities without clubbing, cyanosis, or edema. No obvious deformities. Full range of motion of the upper lower extremities bilaterally. 2+ pulses bilaterally. NEUROLOGICAL: Awake and alert. No obvious cranial nerve deficits. Motor grossly within normal limits. Five out of 5 muscle strength in the arms and legs. Normal speech. PSYCHIATRIC: Appropriate mood and affect; insight and judgment normal. Data Data Last Documented VS Vital Signs Date Time Temp Pulse Resp B/P (MAP) Pulse Ox O2 Delivery O2 Flow Rate FiO2 07/04/17 15:02 85 184/98 (126) 204/93 (130) 07/04/17 14:29 99 Room Air 07/04/17 14:25 97.8 18 Orders Orders Electrocardiogram (07/04/17 14:19) Basic Metabolic Panel (Bmp) (07/04/17 14:19) Ckmb (Isoenzyme) Profile (07/04/17 14:19) Complete Blood Count With Diff (07/04/17 14:19) D-Dimer (07/04/17 14:19) Magnesium (Mg) (07/04/17 14:19) Prothrombin Time / Inr (Pt) (07/04/17 14:19) Act Partial Throm Time (Ptt) (07/04/17 14:19) Troponin I (07/04/17 14:19) Lipase (07/04/17 14:19) Chest, Single Ap (07/04/17 14:19) Ecg Monitoring (07/04/17 14:19) Bilateral Bp Monitoring (07/04/17 14:19) Iv Access Insert/Monitor (07/04/17 14:19) Oximetry (07/04/17 14:19) Oxygen Administration (07/04/17 14:19) Sodium Chloride 0.9% Flush (Ns Flush) (07/04/17 14:30) CKMB (07/04/17 14:35) CKMB% (07/04/17 14:35) Admit Order (Ed Use Only) (07/04/17 16:21) Labs Laboratory Tests Test 07/04/17 14:35 White Blood Count 8.0 TH/MM3 Red Blood Count 4.42 MIL/MM3 Hemoglobin 11.2 GM/DL Hematocrit 34.3 % Mean Corpuscular Volume 77.6 FL Mean Corpuscular Hemoglobin 25.2 PG Mean Corpuscular Hemoglobin Concent 32.5 % Red Cell Distribution Width 18.5 % Platelet Count 356 TH/MM3 Mean Platelet Volume 8.3 FL Neutrophils (%) (Auto) 70.6 % Lymphocytes (%) (Auto) 20.8 % Monocytes (%) (Auto) 5.9 % Eosinophils (%) (Auto) 1.8 % Basophils (%) (Auto) 0.9 % Neutrophils # (Auto) 5.7 TH/MM3 Lymphocytes # (Auto) 1.7 TH/MM3 Monocytes # (Auto) 0.5 TH/MM3 Eosinophils # (Auto) 0.1 TH/MM3 Basophils # (Auto) 0.1 TH/MM3 CBC Comment DIFF FINAL Differential Comment Prothrombin Time 10.6 SEC Prothromb Time International Ratio 1.0 RATIO Activated Partial Thromboplast Time 24.8 SEC D-Dimer Quantitative (PE/DVT) 0.23 MG/L FEU Blood Urea Nitrogen 15 MG/DL Creatinine 1.03 MG/DL Random Glucose 84 MG/DL Calcium Level 8.9 MG/DL Magnesium Level 2.4 MG/DL Sodium Level 139 MEQ/L Potassium Level 4.2 MEQ/L Chloride Level 108 MEQ/L Carbon Dioxide Level 22.4 MEQ/L Anion Gap 9 MEQ/L Estimat Glomerular Filtration Rate 71 ML/MIN Total Creatine Kinase 252 U/L Creatine Kinase MB 0.7 NG/ML Creatine Kinase MB % 0.3 % Troponin I LESS THAN 0.02 NG/ML Lipase 181 U/L MDM Medical Decision Making Medical Screen Exam Complete: Yes Emergency Medical Condition: Yes Medical Record Reviewed: Yes Interpretation(s) EKG shows sinus rhythm with no sign of acute ischemia or arrythmia read by me and attending troponin and CK-MB negative. CBC & BMP Diagram 07/04/17 14:35 Calcium Level 8.9, Magnesium Level 2.4 Differential Diagnosis Chest pain bursa typical chest pain versus ACS versus asthma exacerbation versus hypertension Narrative Course 41-year-old female that presents to the ED for evaluation of chest pain. Patient was properly examinable as found to have signs and symptoms concerning for ACS. EKG and labs here were essentially unremarkable for acute disease. Recommendation at this time his for chest pain center admission for further evaluation of the chest pain as patient did have a resolution of discomfort with nitroglycerin does have risk factors for heart disease. She agrees with this plan. Patient was not admitted to the chest pain center. Diagnosis Primary Impression: Chest pain Qualified Codes: R07.9 - Chest pain, unspecified Admitting Information Admitting Physician Requests: Garcia Aldrich Jul 04, 2017 16:09
[2017-07-04] MEDS ORDERED: ONDANSETRON HCL 4 MG/2 ML VIAL IV PUSH PRN (17:00)
[2017-07-04] MEDS ORDERED: NITROGLYCERIN 0.4 MG SL 25 TABS/BTL SL PRN (17:00)
[2017-07-04] MEDS ORDERED: cloNIDine HCL 0.1 MG TAB PO ONE (17:00)
[2017-07-04] MEDS ORDERED: ACETAMINOPHEN 500 MG CPLT PO PRN (17:00)
[2017-07-04] MEDS ORDERED: RESP: ALBUTEROL 2.5 MG/3 ML NEB (PRN) NEB (17:15)
--- NOTE | 2017-07-04 18:03 | HHI.HP ---
HPI Primary Care Physician Kitty Pennington MD Chief Complaint Chest pain History of Present Illness 41-year-old female with history of hypertension and asthma presents to emergency room for further evaluation of chest pain. Onset upon awakening this morning. Location right anterior chest. Characterized as sharp, quick pain. Duration seconds. No radiation. No associated symptoms of nausea, vomiting, dyspnea, or diaphoresis. Denies similar pain in the past. Precipitating factors she relates to breathing secondhand smoke yesterday while at work. No known relieving factors. 3 episodes chest pain, therefore can emergency room for further evaluation. Review of Systems General: No fatigue,weakness, fever, chills, or recent illness change in appetite. HEENT: No WOODSON, no vision changes, no nasal congestion or drainage, no dysphasia CV: As stated above. No current CP, pressure. No palpitations or dizziness. RESP: No SOB, cough, wheeze, or recent URI. History of asthma well-controlled with current inhaler regimen. GI: No nausea or vomiting, bowel changes, diarrhea, constipation, pain, distention, melena, blood in the stool. No change in appetite, no unintentional weight gain or weight loss : No dysuria, urgency, frequency EXT: No lower leg edema, no paraesthesias MS: No discomfort or change in ROM NEURO: No difficulty with balance, LOC, motor/sensory deficits PSYCH: No anxiety, depression SKIN: No rashes, no concerning lesions Past Family Social History Allergies: Coded Allergies: tramadol (Verified Allergy, Severe, ITCHING, 04/06/17) Past Medical History HTN, asthma Past Surgical History Reported Medications Reported Meds & Active Scripts Active Flexeril (Cyclobenzaprine HCl) 10 Mg Tab 10 Mg PO TID PRN Symbicort Inh (Budesonide/Formoterol Fumarate) 80-4.5 Mcg/Act Aero 1 Puff INH Q12HR Ventolin Hfa 18 GM Inh (Albuterol Sulfate) 90 Mcg/Act Aer 2 Puff INH Q4-6H PRN Amlodipine (Amlodipine Besylate) 5 Mg Tab 5 Mg PO DAILY Active Ordered Medications Current Medications Medications (Trade) Dose Ordered Sig/Queta Route Start Time Stop Time Status Last Admin (NS Flush) 2 ml UNSCH PRN IVF 07/04/17 14:30 (NS Flush) 2 ml BID IV FLUSH 07/04/17 21:00 (Tylenol) 500 mg Q4H PRN PO 07/04/17 17:00 (Zofran Inj) 4 mg Q6H PRN IV PUSH 07/04/17 17:00 (Nitrostat Sl) 0.4 mg Q5M PRN SL 07/04/17 17:00 (Aspirin) 325 mg DAILY PO 07/05/17 09:00 (Catapres) 0.1 mg Q6H PRN PO 07/04/17 17:00 (Albuterol Neb) 2.5 mg Q2HR NEB PRN NEB 07/04/17 17:15 (Norvasc) 5 mg DAILY PO 07/05/17 09:00 (Symbicort 80-4.5 Mcg Inh) 1 puff Q12HR INH 07/04/17 21:00 Family History Mother CVA 58. Social History Known hypertension. No known diabetes, CAD, or hyperlipidemia. Lifelong nonsmoker. Denies any alcohol or illegal drug use. Endorses a sedentary lifestyle. Past cardiac testing None Physical Exam Vital Signs Vital Signs Date Time Temp Pulse Resp B/P (MAP) Pulse Ox O2 Delivery O2 Flow Rate FiO2 07/04/17 17:23 78 18 173/79 (110) 98 Room Air 07/04/17 16:51 80 16 197/91 (126) 100 Room Air 07/04/17 15:02 85 184/98 (126) 204/93 (130) 07/04/17 14:29 99 Room Air 07/04/17 14:25 97.8 94 18 184/98 (126) 97 Room Air 07/04/17 14:22 18 99 Room Air Physical Exam GENERAL: Alert WN, WD, NAD, pleasant, obese female HEAD: NC, AT EYES: Sclera clear, conjunctiva without injection CV: RRR, without murmur, rub, gallop, no JVD, S1-S2 no S3-S4. Chest wall nontender with palpation. RESP: Clear lungs throughout bilateral, no crackles, wheeze, rhonchi, symmetrical chest rise, nonlabored, able to speak in full sentences ABD: Soft, NT, ND, no masses, positive bowel tones, obese EXT: Pulses +14, no dependent edema MS: Normal tone 4 extremities, no obvious deformities, full range of motion NEURO: CN II through CN XII grossly intact, motor strength 5/5 PSYCH: A+O 3, pleasant affect, appropriate speech, mood, insight and judgment SKIN: Normal turgor, normal texture, no lesions, no rashes Laboratory Laboratory Tests Test 07/04/17 14:35 White Blood Count 8.0 Red Blood Count 4.42 Hemoglobin 11.2 Hematocrit 34.3 Mean Corpuscular Volume 77.6 Mean Corpuscular Hemoglobin 25.2 Mean Corpuscular Hemoglobin Concent 32.5 Red Cell Distribution Width 18.5 Platelet Count 356 Mean Platelet Volume 8.3 Neutrophils (%) (Auto) 70.6 Lymphocytes (%) (Auto) 20.8 Monocytes (%) (Auto) 5.9 Eosinophils (%) (Auto) 1.8 Basophils (%) (Auto) 0.9 Neutrophils # (Auto) 5.7 Lymphocytes # (Auto) 1.7 Monocytes # (Auto) 0.5 Eosinophils # (Auto) 0.1 Basophils # (Auto) 0.1 CBC Comment DIFF FINAL Differential Comment Prothrombin Time 10.6 Prothromb Time International Ratio 1.0 Activated Partial Thromboplast Time 24.8 D-Dimer Quantitative (PE/DVT) 0.23 Blood Urea Nitrogen 15 Creatinine 1.03 Random Glucose 84 Calcium Level 8.9 Magnesium Level 2.4 Sodium Level 139 Potassium Level 4.2 Chloride Level 108 Carbon Dioxide Level 22.4 Anion Gap 9 Estimat Glomerular Filtration Rate 71 Total Creatine Kinase 252 Creatine Kinase MB 0.7 Creatine Kinase MB % 0.3 Troponin I LESS THAN 0.02 Lipase 181 Result Diagram: 07/04/17 1435 07/04/17 1435 Imaging Last 48 hours Impressions Chest X-Ray 07/04/17 1419 Signed Impressions: Service Date/Time: Tuesday, July 04, 2017 14:29 - CONCLUSION: No acute cardiopulmonary abnormality is identified. Michael Dwyer MD Course EKG NSR, normal axis, no st t segment changes Caprini VTE Risk Assessment Caprini VTE Risk Assessment: No/Low Risk (score <= 1) Caprini Risk Assessment Model Point Value = 1 Point Value = 2 Point Value = 3 Point Value = 5 Age 41-60 Minor surgery BMI > 25 kg/m2 Swollen legs Varicose veins or History of unexplained or recurrent spontaneous Oral contraceptives or hormone replacement Sepsis (< 1 month) Serious lung disease, including pneumonia (< 1 month) Abnormal pulmonary function Acute myocardial infarction Congestive heart failure (< 1 month) History of inflammatory bowel disease Medical patient at bed rest Age 61-74 Arthroscopic surgery Major open surgery (> 45 min) Laparoscopic surgery (> 45 min) Malignancy Confined to bed (> 72 hours) Immobilizing plaster cast Central venous access Age >= 75 History of VTE Family history of VTE Factor V Leiden Prothrombin [id number] Lupus anticoagulant Anticardiolipin antibodies Elevated serum homocysteine Heparin-induced thrombocytopenia Other congenital or acquired thrombophilia Stroke (< 1 month) Elective arthroplasty Hip, pelvis, or leg fracture Acute spinal cord injury (< 1 month) Prophylaxis Regimen Total Risk Factor Score Risk Level Prophylaxis Regimen 0-1 Low Early ambulation 2 Moderate Order ONE of the following: *Sequential Compression Device (SCD) *Heparin 5000 units SQ BID 3-4 Higher Order ONE of the following medications: *Heparin 5000 units SQ TID *Enoxaparin/Lovenox 40 mg SQ daily (WT < 150 kg, CrCl > 30 mL/min) *Enoxaparin/Lovenox 30 mg SQ daily (WT < 150 kg, CrCl > 10-29 mL/min) *Enoxaparin/Lovenox 30 mg SQ BID (WT < 150 kg, CrCl > 30 mL/min) AND/OR *Sequential Compression Device (SCD) 5 or more Highest Order ONE of the following medications: *Heparin 5000 units SQ TID (Preferred with Epidurals) *Enoxaparin/Lovenox 40 mg SQ daily (WT < 150 kg, CrCl > 30 mL/min) *Enoxaparin/Lovenox 30 mg SQ daily (WT < 150 kg, CrCl > 10-29 mL/min) *Enoxaparin/Lovenox 30 mg SQ BID (WT < 150 kg, CrCl > 30 mL/min) AND *Sequential Compression Device (SCD) Assessment and Plan Assessment and Plan #1 Atypical chest pain-admitted to chest pain center. Rule out with 3 sets of EKG, cardiac enzymes, and continue to monitor. Will be seen an evaluated by Dr. Trev Stanley. Discussed possible exercise stress testing in morning. #2 Asthma-continue Symbicort, albuterol RT q2h prin sob/wheeze #3 Hypertension-continue amlodipine. Clonidine 0.1 mg Q6H prn for SBP 180 DBP 95. Consider adding HCTZ to bp regimen upon discharge. Encouraged increasing daily activity, weight lost, and following a low sodium diet. Justina Giang Jul 04, 2017 18:03
[2017-07-04] MEDS: BUDESONIDE-FORMOTEROL 80/4.5 MCG INHALER INH SCH (21:07)
[2017-07-04] MEDS: SODIUM CHLORIDE 0.9% FLUSH 10 ML FLUSH IV FLUSH SCH (21:07)
[2017-07-04 21:54] LABS: TROPONIN I LESS THAN 0.02 NG/ML (0.02-0.05)
[2017-07-05] VITALS (7 sets, daily range): BP systolic 133–188; BP diastolic 64–103; PULSE 79–85; RESP 18–20; TEMP 98.1–98.3; O2SAT 97–99
[2017-07-05] MEDS: cloNIDine HCL 0.1 MG TAB PO PRN ×2 (00:47→07:55)
[2017-07-05 01:18] LABS: TROPONIN I LESS THAN 0.02 NG/ML (0.02-0.05)
[2017-07-05] MEDS ORDERED: ASPIRIN 325 MG TAB PO SCH (09:00)
[2017-07-05] MEDS ORDERED: amLODIPine BESYLATE 5 MG TAB PO SCH (09:00)
[2017-07-05] MEDS: SODIUM CHLORIDE 0.9% FLUSH 10 ML FLUSH IV FLUSH SCH (09:45)
[2017-07-05] MEDS: BUDESONIDE-FORMOTEROL 80/4.5 MCG INHALER INH SCH (09:49)
[2017-07-05] MEDS ORDERED: REGADENOSON INJ 0.4 MG/5 ML SYR ONE (11:34)
--- NOTE | 2017-07-05 13:04 | EKG ---
Date Performed: 07/05/2017 Time Performed: 00:47:30 PTAGE: 41 years EKG: Sinus rhythm NORMAL ECG PREVIOUS TRACING : 07/04/2017 18.18 Since previous tracing, no significant change noted DOCTOR: Trev Stanley Interpretating Date/Time 07/05/2017 13:02:16
--- NOTE | 2017-07-05 13:06 | EKG ---
Date Performed: 07/04/2017 Time Performed: 18:18:22 PTAGE: 41 years EKG: Sinus rhythm NORMAL ECG PREVIOUS TRACING : 07/04/2017 14.54 Since previous tracing, no significant change noted DOCTOR: Trev Stanley Interpretating Date/Time 07/05/2017 13:04:41
--- NOTE | 2017-07-05 13:08 | EKG ---
Date Performed: 07/04/2017 Time Performed: 14:54:19 PTAGE: 41 years EKG: Sinus rhythm NORMAL ECG PREVIOUS TRACING : 08/10/2016 20.20 DOCTOR: Trev Stanley Interpretating Date/Time 07/05/2017 13:06:45
--- NOTE | 2017-07-05 13:12 | TR ---
Date Performed: 07/05/2017 Time Performed: 11:40:23 DOCTOR: Trev Stanley DRUG LIST: CLINICAL HISTORY: REASON FOR TEST: REASON FOR ENDING: OBSERVATION: CONCLUSION: Lexiscan stress test was performed under standard four minute protocol. Radionuclid e was injected one minute prior to ending the test. No electrocardiographic abormalities were present to suggest ischemia. Nuclear imaging and interpretation are pending. COMMENTS:
--- NOTE | 2017-07-05 13:13 | RADRPT ---
EXAM DATE/TIME: 07/05/2017 10:43 [facility] COMPARISON: No previous studies available for comparison. INDICATIONS : Right chest pain. Angina. DOSE: 11.0 mCi Tc99m Myoview at stress. 35.0 mCi Tc99m Myoview at rest. 0.4 mg Lexiscan STRESS SYMPTOMS: Nausea and headache. EJECTION FRACTION: 67% MEDICAL HISTORY : Hypertension. Asthma. SURGICAL HISTORY : Tubal ligation. ENCOUNTER: Initial ACUITY: 1 day PAIN SCALE: 5/10 LOCATION: Right chest TECHNIQUE: The patient underwent pharmacologic stress with infusion of prescribed dose. Continuous ECG tracing was monitored during stress. Gated SPECT imaging was performed after stress and conventional SPECT i maging was performed at rest. The examination was performed on a SPECT/CT scanner, both attenuation and non-corrected datasets were reviewed. FINDINGS: DISTRIBUTION: The maximum perfused segment at stress is in the <mid posterior> wall. PERFUSION STUDY: The pattern of perfusion at stress is within normal limits. GATED STUDY: There is intact wall motion and thickening without hypokinetic or dyskinetic segments. CONCLUSION: Normal examination. RISK CATEGORY: Low (<1% Annual Mortality Rate) Cristobal Luevano MD on July 05, 2017 at 13:10 Board Certified Radiologist. This report was verified electronically.
--- NOTE | 2017-07-05 13:17 | HHI.DCPOC ---
Discharge Care Plan Diagnosis: (1) Chest pain Goals to Promote Your Health * To prevent worsening of your condition and complications * To maintain your health at the optimal level Directions to Meet Your Goals Take your medications as prescribed Follow your dietary instruction Follow activity as directed Keep your appointments as scheduled Take your immunizations and boosters as scheduled If your symptoms worsen call your PCP, if no PCP go to Urgent Care Center or Emergency Room Smoking is Dangerous to Your Health. Avoid second hand smoke Call the 24-hour hour crisis hotline for domestic abuse at [facility] Jul 05, 2017 13:17
== END 2017-07-05 16:46 | disposition home or self-care (01) ==
LOC: NEPE 14:05 → NEDA 16:22 → NEPGCP 18:28
PROVIDERS: ADMIT Internal Medicine Interventional Cardiology; ATTEND Internal Medicine Interventional Cardiology
DX: R07.9 Chest pain, unspecified (principal); I10 Essential (primary) hypertension; J45.909 Unspecified asthma, uncomplicated; K21.9 Gastro-esophageal reflux disease without esophagitis; Z82.49 Family history of ischemic heart disease and other diseases of the circulatory system
CPT/HCPCS: 71045; 78452; 80048; 82550; 82552; 83690; 83735; 84484; 84702; 85025; 85379; 85610; 85730; 93005; 93017; 99285; A9502; G0378; J2785

== ENCOUNTER 2017-08-30 08:40 | Emergency (ER) | payer OTHER ==
[~2017-08-30] VITALS: Ht 162.6 cm; Wt 149.0 kg
[~2017-08-30 08:40] MED LIST changes: -FERR325T18 PO; +SYMB80AE INH; +VENTAER INH
[2017-08-30 08:44] VITALS: PULSE 94; RESP 16; TEMP 99; O2SAT 97
[2017-08-30] MEDS ORDERED: TYLETAB34 PO (09:07)
--- NOTE | 2017-08-30 09:16 | PD ---
HPI Chief Complaint: Skin Problem Time Seen by Provider: 08:51 Travel History International Travel<30 days: No Contact w/Intl Traveler<30days: No Traveled to known affect area: No History of Present Illness HPI The patient was seen and examined in the presence of the nurse. This patient complains of pain in both sides of her upper back. It started yesterday while she was seated in her desk at work. No injury. Is worse with movement of her shoulders are pressing on the area. She is not having any chest pain or shortness of breath or headache. No neurologic complaints. Duration 1 day PFSH Past Medical History Anemia: Yes Asthma: Yes Blood Disorders: No Heart Rhythm Problems: No Cancer: No Cardiovascular Problems: Yes High Cholesterol: No Chemotherapy: No Chest Pain: Yes Congestive Heart Failure: No COPD: No Diabetes: No Diminished Hearing: No Endocrine: No Gastrointestinal Disorders: No GERD: Yes Genitourinary: Yes (gerd) Hypertension: Yes Immune Disorder: No Implanted Vascular Access Dvce: No Musculoskeletal: No Neurologic: No Psychiatric: No Reproductive: No Respiratory: No Immunizations Current: Yes Radiation Therapy: No Sleep Apnea: No Thyroid Disease: No Tetanus Vaccination: < 5 Years Influenza Vaccination: No ?: Not LMP: 3 weeks ago : 2 Para: 2 Tubal Ligation: Yes Past Surgical History Section: Yes (x2) Gynecologic Surgery: Yes (CSECTION) Other Surgery: No Social History Alcohol Use: Yes (occas. mix drinks) Tobacco Use: No Substance Use: No Allergies-Medications (Allergen,Severity, Reaction): Coded Allergies: tramadol (Verified Allergy, Severe, ITCHING, 08/30/17) Reported Meds & Prescriptions Reported Meds & Active Scripts Active Tylenol-Codeine #3 (Acetaminophen-Codeine) 300-30 mg Tab 1 Tab PO Q6H PRN Flexeril (Cyclobenzaprine HCl) 10 Mg Tab 10 Mg PO TID Reported Symbicort Inh (Budesonide/Formoterol Fumarate) 80-4.5 Mcg/Act Aero 1 Puff INH Q12HR Ventolin Hfa 18 GM Inh (Albuterol Sulfate) 90 Mcg/Act Aer 2 Puff INH Q4-6H PRN Amlodipine (Amlodipine Besylate) 5 Mg Tab 5 Mg PO DAILY Review of Systems General / Constitutional: No: Fever HENT: No: Headaches Cardiovascular: No: Chest Pain or Discomfort Respiratory: No: Cough Gastrointestinal: No: Vomiting Physical Exam Narrative Back: No midline tenderness. No bruising or swelling or redness or warmth. There is bilateral trapezius tenderness that readily reproduces her pain complaint NEUROLOGICAL: Awake and alert. Pupils are equal round and reactive. Motor and sensory grossly within normal limits. Five out of 5 muscle strength in all muscle groups. Normal speech. NECK: Symmetrical appearance, midline trachea. No mass or crepitus. Thyroid without enlargement, tenderness, or mass. SKIN: Focused skin assessment reveals no rash or ulcers. Skin is warm and dry. Palpation shows no induration or nodules. Data Data Last Documented VS Vital Signs Date Time Temp Pulse Resp B/P (MAP) Pulse Ox O2 Delivery O2 Flow Rate FiO2 08/30/17 09:05 16 08/30/17 08:44 99.0 94 97 MDM Medical Decision Making Medical Screen Exam Complete: Yes Emergency Medical Condition: Yes Medical Record Reviewed: Yes Differential Diagnosis Trapezius strain, fibromyalgia, muscle tear Narrative Course I have reviewed the patient's electronic medical record.Patient had cardiac stress testing June 2017 which was normal Patient presentation consistent with trapezius pain This is clearly musculoskeletal and readily reproducible Supportive care discussed. I prescribed a few Tylenol 3 to use as needed Diagnosis Primary Impression: Trapezius strain Qualified Codes: S46.819A - Strain of other muscles, fascia and tendons at shoulder and upper arm level, unspecified arm, initial encounter Additional Instructions: The patient was advised to follow up with their physician and return if they worsen. The patient was warned about potential sedation for the medications they will receive on prescription. Med/Other Pt SpecificInfo: Prescription(s) given Scripts Acetaminophen-Codeine (Tylenol-Codeine #3) 300-30 mg Tab 1 TAB PO Q6H Y for PAIN, #15 TAB 0 Refills Prov: Cb Moreira MD 08/30/17 Disposition: 01 DISCHARGE HOME Condition: Stable Cb Moreira MD Aug 30, 2017 09:16
== END 2017-08-30 09:29 | disposition home or self-care (01) ==
LOC: PHED 08:40
DX: S46.811A Strain of other muscles, fascia and tendons at shoulder and upper arm level, right arm, initial encounter (principal); S46.812A Strain of other muscles, fascia and tendons at shoulder and upper arm level, left arm, initial encounter; X58.XXXA Exposure to other specified factors, initial encounter
CPT/HCPCS: 99283

== ENCOUNTER 2018-05-01 23:52 | Observation (INO) ==
[2018-05-02] MEDS ORDERED: hydrALAZINE HCl Inj 20 MG/ML Vial IV.PUSH ONE (01:29)
[2018-05-02 01:58] LABS: Baso % (Auto) 0.2 % (0.0-2.0); Eos # (Auto) 0.2 th/mm3 (0.0-0.4); Eos % (Auto) 2.5 % (0.0-4.0); Hematocrit 36.8 % (35.0-46.0); Hemoglobin 11.8 gm/dL (11.6-15.3); Lymph # (Auto) 1.7 th/mm3 (1.0-4.8); Lymph % (Auto) 20.7 % (9.0-44.0); Mean Corpuscular HGB Conc 32.2 % (32.0-36.0); Mean Corpuscular Hemoglobin 26.8 pg (27.0-34.0); Mean Corpuscular Volume 83.1 fL (80.0-100.0); Mean Platelet Volume 8.3 fL (7.0-11.0); Mono # (Auto) 0.2 th/mm3 (0.0-0.9); Mono % (Auto) 2.6 % (0.0-8.0); Neut # (Auto) 6.3 th/mm3 (1.8-7.7); Platelet Count 394 th/mm3 (150-450); Red Blood Count 4.42 mil/mm3 (4.00-5.30); Red Cell Distribution Width 16.2 % (11.6-17.2); White Blood Count 8.4 th/mm3 (4.0-11.0)
--- NOTE | 2018-05-02 02:03 | ED ---
HPI General Chief Complaint: Headache Stated Complaint: head pain x 2 wks Time Seen by Provider: 05/02/18 01:29 Source: patient History of Present Illness HPI Narrative: 9 presents to the emergency room complaining of headache, left- sided neck pain and elevated blood pressure. Symptoms have been worse for the last 4 hours.Patient Pain medication for the last 2 weeks. With the aggravated neck pain patient has a headache and an uncontrolled blood pressure. Patient denies any focal deficits, blurring of vision, nausea, vomiting, chest pain or shortness of breath. Neck pain is reproducible by turning to the left or palpation of the left side of the posterior neck. Patient denies recent trauma , fever, chills, cough, or photophobia. Related Data Home Medications Medication Instructions Recorded Confirmed amlodipine 10 mg PO DAILY 01/08/18 05/02/18 budesonide-formoterol [Symbicort] 2 puff INHALATION BID 01/08/18 05/02/18 hydrochlorothiazide 25 mg PO DAILY 01/08/18 05/02/18 cyclobenzaprine 10 mg PO DIRECTED PRN 05/02/18 05/02/18 Previous Rx's Medication Instructions Recorded naproxen 500 mg PO Q12H PRN #20 tab 01/11/18 Allergies Allergy/AdvReac Type Severity Reaction Status Date / Time tramadol Allergy Severe ITCHING Verified 05/02/18 01:56 Review of Systems Constitutional Denies fever(s) Eyes Denies change in vision ENT Denies headache(s) and Denies nasal congestion Cardiovascular Denies chest pain Respiratory Denies dyspnea Gastrointestinal Denies abdominal pain Genitourinary Denies difficulty voiding Musculoskeletal Denies myalgias Integumentary/Breasts Denies rash Neurologic Denies vertigo, Denies syncope, Reports headache(s), Denies loss of vision, Denies numbness and Denies seizure-like activity Psychiatric Denies depression Endocrine Denies polyuria Hematologic/Lymphatic Denies easy bruising [facility] Medical History Medical History Anemia (Acute) Asthma (Acute) Hypertension (Acute) Surgical History Surgical History H/O tubal ligation (Acute) Previous section (Acute) Social History Social History Substance History: No History of Abuse Second Hand Smoke Exposure: No Smoking Status: Never smoker How Often Do You Have a Drink Containing Alcohol: Never Recent Travel in [facility] within the Last 8 Weeks: No Recent Out of Country Travel within the Last 8 Weeks: No Exam Const General: cooperative and no acute distress Nutritional Appearance: obese HENMT Head: normocephalic and atraumatic Nose: no nasal discharge and no epistaxis Mouth: moist mucous membranes Eyes Sclera: normal sclerae Pupils: PERRL Neck Neck: trachea midline, tender (left para spinal and trapezius muscle), torticollis and no JVD Resp Effort & Inspection: no use of accessory muscles Auscultation: clear to auscultation bilaterally Cardio Rate: regular rate Rhythm: regular rhythm Heart Sounds: no murmurs GI Inspection: non-distended Palpation: soft, no hepatosplenomegaly and nontender Skin General: dry skin (warm) Neuro General: alert and awake Cranial Nerves: other Speech: speech normal Motor: no movement abnormalities noted Extrem General: normal to inspection, no clubbing, no cyanosis and no edema Psych Mood: congruent mood Affect: normal affect Judgment: judgment good Course Reevaluation(s) Reevaluation #1: Patient condition improved during the ER course. I personally reexamined and counseled the patient about her diagnosis and results. Time: 04:13 Initial Documented Vital Signs Temperature 98.8 F 05/02/18 00:21 Pulse Rate 92 H 05/02/18 00:21 Respiratory Rate 18 05/02/18 00:21 Blood Pressure 235/103 H 05/02/18 00:21 Pulse Oximetry 98 05/02/18 00:21 Last Documented Vital Signs Temperature 98.8 F 05/02/18 00:21 Pulse Rate 97 H 05/02/18 03:17 Respiratory Rate 15 05/02/18 03:17 Blood Pressure 184/77 H 05/02/18 03:46 Pulse Oximetry 98 05/02/18 03:17 Medical Decision Making MDM Narrative Medical Screen Exam Complete: Yes Emergency Medical Condition: Yes Lab Data Result diagrams: 05/02/18 01:50 05/02/18 01:50 Lab Results 05/02/18 05/02/18 Range/Units 01:50 01:50 CBC w Diff Auto diff final WBC 8.4 (4.0-11.0) th/mm3 RBC 4.42 (4.00-5.30) mil/mm3 Hgb 11.8 (11.6-15.3) gm/dL Hct 36.8 (35.0-46.0) % MCV 83.1 (80.0-100.0) fL MCH 26.8 L (27.0-34.0) pg MCHC 32.2 (32.0-36.0) % RDW 16.2 (11.6-17.2) % Plt Count 394 (150-450) th/mm3 MPV 8.3 (7.0-11.0) fL Neut % (Auto) 74.0 H (16.0-70.0) % Lymph % (Auto) 20.7 (9.0-44.0) % [place] % (Auto) 2.6 (0.0-8.0) % Eos % (Auto) 2.5 (0.0-4.0) % Baso % (Auto) 0.2 (0.0-2.0) % Neut # (Auto) 6.3 (1.8-7.7) th/mm3 Lymph # (Auto) 1.7 (1.0-4.8) th/mm3 [place] # (Auto) 0.2 (0.0-0.9) th/mm3 Eos # (Auto) 0.2 (0.0-0.4) th/mm3 Baso # (Auto) 0.0 (0.0-0.2) th/mm3 WBC Differential . Differential Comment . Sodium 139 (136-145) meq/L Potassium 3.9 (3.5-5.1) meq/L Chloride 107 (98-107) meq/L Carbon Dioxide 26.8 (21.0-32.0) meq/L Anion Gap 5 (5-15) meq/L BUN 13 (7-18) mg/dL Creatinine 0.89 (0.50-1.00) mg/dL Estimated GFR 84 L (>89) mL/min Random Glucose 111 H (74-106) mg/dL Calcium 8.6 (8.5-10.1) mg/dL Total Bilirubin 0.2 (0.2-1.0) mg/dL AST 15 (15-37) U/L ALT 22 (10-53) U/L Alkaline Phosphatase 101 (45-117) U/L Troponin I Less than 0.02 L (0.02-0.05) ng/mL Total Protein 7.7 (6.4-8.2) g/dL Albumin 3.3 L (3.4-5.0) g/dL Imaging Data Radiologist's impression: Head CT 05/02/18 01:31 CONCLUSION: 1. Unremarkable examination. 2. Mild motion artifact. . Discharge Plan Discharge Disposition Patient Disposition: 30 Still Patient Discharge Condition Condition: Fair Discharge Details Diagnosis: Accelerated hypertension, Headache, Cervical muscle strain Physicians Team ED Provider: Yogesh Oates Primary Care Provider: UNKNOWN, Rxs /Orders / Referrals /Forms Prescriptions: No Action naproxen 500 mg tablet 500 mg PO Q12H PRN (Reason: pain) Qty: 20 RF: 0 cyclobenzaprine 10 mg tablet 10 mg PO DIRECTED PRN (Reason: Spasms) RF: 0 amlodipine 10 mg Tablet 10 mg PO DAILY RF: 0 hydrochlorothiazide 25 mg Tablet 25 mg PO DAILY RF: 0 budesonide-formoterol [Symbicort] 160-4.5 mcg/actuation Hfa Aerosol Inhaler 2 puff INHALATION BID RF: 0 Discharge Interventions Interventions: Vital Signs Last Done: 05/02/18 03:46 Status ED Status: With Doctor
[2018-05-02 02:08] LABS: Chloride 107 meq/L (98-107); Potassium 3.9 meq/L (3.5-5.1); Sodium 139 meq/L (136-145)
[2018-05-02 02:11] LABS: Albumin 3.3 g/dL (3.4-5.0); Anion Gap 5 meq/L (5-15); Calcium 8.6 mg/dL (8.5-10.1); Carbon Dioxide 26.8 meq/L (21.0-32.0); Glucose,Random 111 mg/dL (74-106)
[2018-05-02 02:12] LABS: Blood Urea Nitrogen 13 mg/dL (7-18)
[2018-05-02 02:15] LABS: Alanine Aminotransferase 22 U/L (10-53); Aspartate Aminotransferase 15 U/L (15-37); Glomerular Filtration Rate 84 mL/min (>89)
[2018-05-02 02:16] LABS: Total Protein 7.7 g/dL (6.4-8.2)
[2018-05-02 02:17] LABS: Alkaline Phosphatase 101 U/L (45-117)
--- NOTE | 2018-05-02 02:31 | CT ---
EXAM DATE: 05/02/2018 2:27 AM EST AGE/SEX: 42 years / Female INDICATIONS: Cephalgia. CLINICAL DATA: This is the patient's initial encounter. Patient reports that signs and symptoms have been present for 1 day and indicates a pain score of 6/10. MEDICAL/SURGICAL HISTORY: Hypertension. None. RADIATION DOSE: 57.19 CTDI (mGy) ; Patient motion COMPARISON: No prior exams available for comparison. TECHNIQUE: CT of the head without contrast. Using automated exposure control and adjustment of the mA and/or kV according to patient size, radiation dose was kept as low as reasonably achievable to ob tain optimal diagnostic quality images. DICOM format image data is available electronically for revi ew and comparison. FINDINGS: The study is degraded by mild motion artifact. Cerebrum: The ventricles are normal for age. No evidence of midline shift, mass lesion, hemorrhage or acute infarction. No extraaxial fluid collections are seen. Posterior Fossa: The cerebellum and brainstem are intact. The 4th ventricle is midline. The cerebe llopontine angle is unremarkable. Extracranial: The visualized portion of the orbits is intact. Skull: The calvaria is intact. No evidence of skull fracture. CONCLUSION: 1. Unremarkable examination. 2. Mild motion artifact. . Electronically signed by: Иван Santos MD 05/02/2018 2:29 AM EST
[2018-05-02] MEDS ORDERED: Morphine Sulfate Inj 2 MG/ML Vial IV.PUSH ONE (02:55)
[2018-05-02] MEDS ORDERED: Bisacodyl 10 MG Supp RECTAL PRN (04:14)
[2018-05-02] MEDS ORDERED: Acetaminophen 325 MG Tablet PO PRN (04:14)
--- NOTE | 2018-05-02 08:34 | ECG ---
Date Performed: 05/02/2018 Time Performed: 02:35:50 PTAGE: 42 years EKG: SINUS TACHYCARDIA NONSPECIFIC T-WAVE ABNORMALITY ABNORMAL RHYTHM ECG PREVIOUS TRACING : 07/05/2017 00.47 DOCTOR: Cristobal Handy Interpretating Date/Time 05/02/2018 08:32:25
[2018-05-02] MEDS ORDERED: Senna/Docusate Sodium 8.6/50 MG Tablet PO SCH (09:00)
[2018-05-02] MEDS ORDERED: Budesonide-Formoterol 160/4.5 MCG 6 GM Inhaler INH SCH (09:00)
[2018-05-02] MEDS ORDERED: hydroCHLOROthiazide 25 MG Tablet PO SCH (09:00)
[2018-05-02] MEDS ORDERED: amLODIPine 10 MG Tablet PO SCH (09:00)
--- NOTE | 2018-05-02 10:36 | P.HPIM ---
History of Present Illness Service: [facility] Primary Care Physician: Lynn gomez Chief Complaint: Left-sided neck pain and elevated blood pressure History of Present Illness: Patient is a 42-year-old -[place] female with known history of hypertension and asthma chronic neck pain/spasms who presented to the emergency department complaining of headache and left-sided neck pain and elevated blood pressure. Patient has had worsening symptoms for the past 4-5 hours. She has been on pain medications for the last 2 weeks. She has had aggravated the neck pain on her left and has had headaches and has had worsening uncontrolled blood pressure. She denies any focal deficits denies any blurring of vision denies any nausea or vomiting denies that she is any chest pain or shortness of breath. Has neck pain that is reproducible by turning to the left or palpation of the left side of the posterior neck. Denies any recent trauma, denies any fevers, denies any chills, denies any cough, denies any photophobia. Past medical history is significant for mother having CVAs and hypertension as well as a sister with kidney disease Will be discharged home on p.o. medications New prescriptions will be written Adjust blood pressure medication Review of Systems All other systems reviewed negative except as stated in HPI PMFSH - History History Provided By: Patient - Medical History Medical History: Medical History (Last Updated 05/02/18 @ 10:28 by Terry Hector DO) Anemia (Acute) Asthma (Acute) Hypertension (Acute) Muscle spasms of neck - Surgical History Surgical History: Surgical History (Last Reviewed 05/02/18 @ 10:29 by Terry Hector DO) H/O tubal ligation (Acute) Previous section (Acute) - Family History Family History: Family History (Last Updated 05/02/18 @ 10:29 by Terry Hector DO) Other Chronic kidney disease Family history of hypertension - Social History I have reviewed the patient's Social History: Yes - Tobacco History Second Hand Smoke Exposure: No Tobacco Use In Past 30 Days: No Smoking Status: Never smoker - Alcohol History How Often Do You Have a Drink Containing Alcohol: Never - Substance Use History Substance History: No History of Abuse - Travel History History of Recent Travel: No Recent Travel in the [place] Within the Last 8 Weeks: No Recent Travel Out of the Country Within the Last 8 Weeks: No - Immunization History Tetanus Immunization: Unsure Medications and Allergies Active Medications: Active Medications Acetaminophen (Tylenol) 650 mg PO Q4H PRN PRN Reason: Temp > 100.4 Al Hydroxide/Mg Hydroxide (Milk Of Magnesia Liq) 30 ml PO Q12H PRN PRN Reason: Mild Constipation Amlodipine Besylate (Norvasc) 10 mg PO DAILY [facility] Last Admin: 05/02/18 08:17 Dose: 10 mg Bisacodyl (Dulcolax Supp) 10 mg RECTAL DAILY PRN PRN Reason: SEVERE CONSITIPATION Budesonide/Formoterol Fumarate (Symbicort 160/4.5 Mcg Inh) 2 puff INH BID [facility] Last Admin: 05/02/18 08:18 Dose: 2 puff Hydrochlorothiazide (Hydrodiuril) 25 mg PO DAILY [facility] Last Admin: 05/02/18 08:17 Dose: 25 mg Lactulose (Lactulose Liq) 30 ml PO DAILY PRN PRN Reason: SEVERE CONSITIPATION Losartan Potassium (Cozaar) 50 mg PO DAILY [facility] Ondansetron HCl (Zofran Inj) 4 mg IV.PUSH Q6H PRN PRN Reason: NAUSEA OR VOMITING Senna/Docusate Sodium (Ramya-Colace) 1 tab PO BID [facility] Last Admin: 05/02/18 08:17 Dose: Not Given Sennosides (Senokot) 17.2 mg PO Q12H PRN PRN Reason: Moderate Constipation Allergies Allergy/AdvReac Type Severity Reaction Status Date / Time tramadol Allergy Severe ITCHING Verified 05/02/18 01:56 Home Medications Medication Instructions Recorded Confirmed Type amlodipine 10 mg PO DAILY 01/08/18 05/02/18 History budesonide-formoterol [Symbicort] 2 puff INHALATION BID 01/08/18 05/02/18 History hydrochlorothiazide 25 mg PO DAILY 01/08/18 05/02/18 History cyclobenzaprine 10 mg PO DIRECTED PRN 05/02/18 05/02/18 History Exam Vital signs: Vital Signs 05/02/18 00:21 05/02/18 01:58 05/02/18 02:45 Temperature 98.8 F Pulse Rate 92 H 100 H Respiratory Rate 18 18 Blood Pressure 235/103 H 207/99 H 214/94 H Pulse Oximetry 98 99 05/02/18 03:17 05/02/18 03:46 05/02/18 04:43 Temperature Pulse Rate 97 H 88 Respiratory Rate 15 16 Blood Pressure 208/82 H 184/77 H 170/83 H Pulse Oximetry 98 94 L 05/02/18 06:18 05/02/18 08:00 Temperature 97.2 F L Pulse Rate 87 93 H Respiratory Rate 22 Blood Pressure 177/84 H 173/80 H Pulse Oximetry 95 Intake & Output 05/01/18 05/02/18 05/02/18 18:59 06:59 18:59 Weight 159.665 kg Other: # Voids 1 Weight On Admission 159.677 kg Narrative: GENERAL: Awake alert and oriented x3 talkative and cooperative SKIN: Warm and dry. HEAD: Atraumatic. Normocephalic. EYES: Pupils equal and round. No scleral icterus. No injection or drainage. EOMI ENT: No nasal bleeding or discharge. Mucous membranes pink and moist. NECK: Trachea midline. No JVD. Tender and some swelling on left side of her neck CARDIOVASCULAR: Regular rate and rhythm. S1-S2 no S3 or S4 no heave or thrill or rub or gallop RESPIRATORY: No accessory muscle use. Clear to auscultation. Breath sounds equal bilaterally. GASTROINTESTINAL: Abdomen soft, non-tender, nondistended. Hepatic and splenic margins not palpable. Obese MUSCULOSKELETAL: Extremities without clubbing, cyanosis, or edema. No obvious deformities. NEUROLOGICAL: Awake and alert. No obvious cranial nerve deficits. Motor grossly within normal limits. Five out of 5 muscle strength in the arms and legs. Normal speech. PSYCHIATRIC: Appropriate mood and affect; insight and judgment normal. Results - Labs CBC & Chem 7: 05/02/18 01:50 05/02/18 01:50 Labs: Short CBC 05/02/18 Range/Units 01:50 WBC 8.4 (4.0-11.0) th/mm3 Hgb 11.8 (11.6-15.3) gm/dL Hct 36.8 (35.0-46.0) % Plt Count 394 (150-450) th/mm3 [facility] 05/02/18 01:50 Sodium 139 Potassium 3.9 Chloride 107 Carbon Dioxide 26.8 BUN 13 Creatinine 0.89 Calcium 8.6 Cardiac Enzymes 05/02/18 Range/Units 01:50 Troponin I Less than 0.02 L (0.02-0.05) ng/mL Liver Function 05/02/18 Range/Units 01:50 Total Bilirubin 0.2 (0.2-1.0) mg/dL AST 15 (15-37) U/L ALT 22 (10-53) U/L Alkaline Phosphatase 101 (45-117) U/L Albumin 3.3 L (3.4-5.0) g/dL - Imaging Impressions Head CT 05/02/18 01:31 CONCLUSION: 1. Unremarkable examination. 2. Mild motion artifact. . Caprini VTE Risk Assessment Caprini VTE Risk Assessment: No/Low Risk (score <= 1) Caprini Risk Assessment Model: Point Value = 1 Point Value = 2 Point Value = 3 Point Value = 5 Age 41-60 Minor surgery BMI > 25 kg/m2 Swollen legs Varicose veins or History of unexplained or recurrent spontaneous Oral contraceptives or hormone replacement Sepsis (< 1 month) Serious lung disease, including pneumonia (< 1 month) Abnormal pulmonary function Acute myocardial infarction Congestive heart failure (< 1 month) History of inflammatory bowel disease Medical patient at bed rest Age 61-74 Arthroscopic surgery Major open surgery (> 45 min) Laparoscopic surgery (> 45 min) Malignancy Confined to bed (> 72 hours) Immobilizing plaster cast Central venous access Age >= 75 History of VTE Family history of VTE Factor V Leiden Prothrombin [id number] Lupus anticoagulant Anticardiolipin antibodies Elevated serum homocysteine Heparin-induced thrombocytopenia Other congenital or acquired thrombophilia Stroke (< 1 month) Elective arthroplasty Hip, pelvis, or leg fracture Acute spinal cord injury (< 1 month) Prophylaxis Regimen: Total Risk Factor Score Risk Level Prophylaxis Regimen 0-1 Low Early ambulation 2 Moderate Order ONE of the following: *Sequential Compression Device (SCD) *Heparin 5000 units SQ BID 3-4 Higher Order ONE of the following medications: *Heparin 5000 units SQ TID *Enoxaparin/Lovenox 40 mg SQ daily (WT < 150 kg, CrCl > 30 mL/min) *Enoxaparin/Lovenox 30 mg SQ daily (WT < 150 kg, CrCl > 10-29 mL/min) *Enoxaparin/Lovenox 30 mg SQ BID (WT < 150 kg, CrCl > 30 mL/min) AND/OR *Sequential Compression Device (SCD) 5 or more Highest Order ONE of the following medications: *Heparin 5000 units SQ TID (Preferred with Epidurals) *Enoxaparin/Lovenox 40 mg SQ daily (WT < 150 kg, CrCl > 30 mL/min) *Enoxaparin/Lovenox 30 mg SQ daily (WT < 150 kg, CrCl > 10-29 mL/min) *Enoxaparin/Lovenox 30 mg SQ BID (WT < 150 kg, CrCl > 30 mL/min) AND *Sequential Compression Device (SCD) Assessment and Plan - Plan Poorly controlled hypertension -Continue on Norvasc hydrochlorothiazide and losartan -We will make Catapres available Headache and neck spasms/torticollis/cervical muscle strain -We will switch to Robaxin Asthma continue on Symbicort -Rescue inhaler as needed we will prescribe Obesity recommend weight loss DVT prophylaxis with SCDs and YU hose and ambulation GI prophylaxis with Pepcid while here History of section x2 and tubal ligation Patient can be discharged home later today Code Status: FULL CODE Discussed Condition With: RN AND PT AND FAMILY Discharge Planning: Discharge to home today on p.o. medications increased blood pressure medication H&P: Quality - VTE Deep Vein Thrombosis/Pulmonary Embolism Present on Admission: No
--- NOTE | 2018-05-02 10:59 | P.DS ---
Date of admission: 05/02/18 04:04 Primary care physician: UNKNOWN Attending physician on discharge: Terry Hector Anticipated date of discharge: 05/02/18 Brief History from admission: Patient is a 42-year-old -[place] female with known history of hypertension and asthma chronic neck pain/spasms who presented to the emergency department complaining of headache and left-sided neck pain and elevated blood pressure. Patient has had worsening symptoms for the past 4-5 hours. She has been on pain medications for the last 2 weeks. She has had aggravated the neck pain on her left and has had headaches and has had worsening uncontrolled blood pressure. She denies any focal deficits denies any blurring of vision denies any nausea or vomiting denies that she is any chest pain or shortness of breath. Has neck pain that is reproducible by turning to the left or palpation of the left side of the posterior neck. Denies any recent trauma, denies any fevers, denies any chills, denies any cough, denies any photophobia. Past medical history is significant for mother having CVAs and hypertension as well as a sister with kidney disease Will be discharged home on p.o. medications New prescriptions will be written Adjust blood pressure medication Patient update on day of discharge: Chief Complaint: Left-sided neck pain and elevated blood pressure History of Present Illness: Patient is a 42-year-old -[place] female with known history of hypertension and asthma chronic neck pain/spasms who presented to the emergency department complaining of headache and left-sided neck pain and elevated blood pressure. Patient has had worsening symptoms for the past 4-5 hours. She has been on pain medications for the last 2 weeks. She has had aggravated the neck pain on her left and has had headaches and has had worsening uncontrolled blood pressure. She denies any focal deficits denies any blurring of vision denies any nausea or vomiting denies that she is any chest pain or shortness of breath. Has neck pain that is reproducible by turning to the left or palpation of the left side of the posterior neck. Denies any recent trauma, denies any fevers, denies any chills, denies any cough, denies any photophobia. Past medical history is significant for mother having CVAs and hypertension as well as a sister with kidney disease Will be discharged home on p.o. medications New prescriptions will be written Adjust blood pressure medication DS: Diagnosis - Discharge Diagnosis (1) Accelerated hypertension Status: Chronic (2) Cervical muscle strain Status: Acute (3) Headache Status: Acute (4) Asthma Status: Chronic (5) H/O tubal ligation Status: Chronic (6) Hypertension Status: Chronic (7) Previous section Status: Chronic DS: Medications - Discharge Medications Prescriptions: albuterol sulfate 2 puff INHALATION Q4-6H PRN #1 inh PRN Reason: Shortness Of Breath Or Wheezing amlodipine 10 mg PO DAILY #30 tab budesonide-formoterol [Symbicort] 2 puff INHALATION BID #1 inh clonidine HCl 0.1 mg PO TID #90 tab hydrochlorothiazide 25 mg PO DAILY #30 tab losartan 50 mg PO DAILY #30 tab methocarbamol 1,000 mg PO Q8HR #60 tab sennosides-docusate sodium [Senna Plus] 1 tab PO BID #60 tab DS: Summary Hospital Course: Chief Complaint: Left-sided neck pain and elevated blood pressure History of Present Illness: Patient is a 42-year-old -[place] female with known history of hypertension and asthma chronic neck pain/spasms who presented to the emergency department complaining of headache and left-sided neck pain and elevated blood pressure. Patient has had worsening symptoms for the past 4-5 hours. She has been on pain medications for the last 2 weeks. She has had aggravated the neck pain on her left and has had headaches and has had worsening uncontrolled blood pressure. She denies any focal deficits denies any blurring of vision denies any nausea or vomiting denies that she is any chest pain or shortness of breath. Has neck pain that is reproducible by turning to the left or palpation of the left side of the posterior neck. Denies any recent trauma, denies any fevers, denies any chills, denies any cough, denies any photophobia. Past medical history is significant for mother having CVAs and hypertension as well as a sister with kidney disease Will be discharged home on p.o. medications New prescriptions will be written Adjust blood pressure medication - Time Spent with Patient Total time spent providing and/or coordinating discharge services: Greater than 30 minutes - Quality: VTE Deep Vein Thrombosis/Pulmonary Embolism Present on Admission: No Exam Vital signs: Vital Signs 05/02/18 00:21 05/02/18 01:58 05/02/18 02:45 Temperature 98.8 F Pulse Rate 92 H 100 H Respiratory Rate 18 18 Blood Pressure 235/103 H 207/99 H 214/94 H Pulse Oximetry 98 99 05/02/18 03:17 05/02/18 03:46 05/02/18 04:43 Temperature Pulse Rate 97 H 88 Respiratory Rate 15 16 Blood Pressure 208/82 H 184/77 H 170/83 H Pulse Oximetry 98 94 L 05/02/18 06:18 05/02/18 08:00 Temperature 97.2 F L Pulse Rate 87 93 H Respiratory Rate 22 Blood Pressure 177/84 H 173/80 H Pulse Oximetry 95 Intake & Output 05/01/18 05/02/18 05/02/18 18:59 06:59 18:59 Weight 159.665 kg Other: # Voids 1 Weight On Admission 159.677 kg Narrative: GENERAL: Awake alert and oriented x3 talkative and cooperative SKIN: Warm and dry. HEAD: Atraumatic. Normocephalic. EYES: Pupils equal and round. No scleral icterus. No injection or drainage. EOMI ENT: No nasal bleeding or discharge. Mucous membranes pink and moist. NECK: Trachea midline. No JVD. Tender and some swelling on left side of her neck CARDIOVASCULAR: Regular rate and rhythm. S1-S2 no S3 or S4 no heave or thrill or rub or gallop RESPIRATORY: No accessory muscle use. Clear to auscultation. Breath sounds equal bilaterally. GASTROINTESTINAL: Abdomen soft, non-tender, nondistended. Hepatic and splenic margins not palpable. Obese MUSCULOSKELETAL: Extremities without clubbing, cyanosis, or edema. No obvious deformities. NEUROLOGICAL: Awake and alert. No obvious cranial nerve deficits. Motor grossly within normal limits. Five out of 5 muscle strength in the arms and legs. Normal speech. PSYCHIATRIC: Appropriate mood and affect; insight and judgment normal. Results Procedures completed during hospitalization: NONE Completed studies during hospitalization: Laboratory Results CBC w Diff Auto diff final 05/02/18 01:50 WBC 8.4 th/mm3 (4.0-11.0) 05/02/18 01:50 RBC 4.42 mil/mm3 (4.00-5.30) 05/02/18 01:50 Hgb 11.8 gm/dL (11.6-15.3) 05/02/18 01:50 Hct 36.8 % (35.0-46.0) 05/02/18 01:50 MCV 83.1 fL (80.0-100.0) 05/02/18 01:50 MCH 26.8 pg (27.0-34.0) L 05/02/18 01:50 MCHC 32.2 % (32.0-36.0) 05/02/18 01:50 RDW 16.2 % (11.6-17.2) 05/02/18 01:50 Plt Count 394 th/mm3 (150-450) 05/02/18 01:50 MPV 8.3 fL (7.0-11.0) 05/02/18 01:50 Neut % (Auto) 74.0 % (16.0-70.0) H 05/02/18 01:50 Lymph % (Auto) 20.7 % (9.0-44.0) 05/02/18 01:50 Whitfield % (Auto) 2.6 % (0.0-8.0) 05/02/18 01:50 Eos % (Auto) 2.5 % (0.0-4.0) 05/02/18 01:50 Baso % (Auto) 0.2 % (0.0-2.0) 05/02/18 01:50 Neut # (Auto) 6.3 th/mm3 (1.8-7.7) 05/02/18 01:50 Lymph # (Auto) 1.7 th/mm3 (1.0-4.8) 05/02/18 01:50 Whitfield # (Auto) 0.2 th/mm3 (0.0-0.9) 05/02/18 01:50 Eos # (Auto) 0.2 th/mm3 (0.0-0.4) 05/02/18 01:50 Baso # (Auto) 0.0 th/mm3 (0.0-0.2) 05/02/18 01:50 WBC Differential . 05/02/18 01:50 Differential Comment . 05/02/18 01:50 Sodium 139 meq/L (136-145) 05/02/18 01:50 Potassium 3.9 meq/L (3.5-5.1) 05/02/18 01:50 Chloride 107 meq/L (98-107) 05/02/18 01:50 Carbon Dioxide 26.8 meq/L (21.0-32.0) 05/02/18 01:50 Anion Gap 5 meq/L (5-15) 05/02/18 01:50 BUN 13 mg/dL (7-18) 05/02/18 01:50 Creatinine 0.89 mg/dL (0.50-1.00) 05/02/18 01:50 Estimated GFR 84 mL/min (>89) L 05/02/18 01:50 Random Glucose 111 mg/dL (74-106) H 05/02/18 01:50 Calcium 8.6 mg/dL (8.5-10.1) 05/02/18 01:50 Total Bilirubin 0.2 mg/dL (0.2-1.0) 05/02/18 01:50 AST 15 U/L (15-37) 05/02/18 01:50 ALT 22 U/L (10-53) 05/02/18 01:50 Alkaline Phosphatase 101 U/L (45-117) 05/02/18 01:50 Troponin I Less than 0.02 ng/mL (0.02-0.05) L 05/02/18 01:50 Total Protein 7.7 g/dL (6.4-8.2) 05/02/18 01:50 Albumin 3.3 g/dL (3.4-5.0) L 05/02/18 01:[address] 05/02/18 01:31 CONCLUSION: 1. Unremarkable examination. 2. Mild motion artifact. . Labs on day of discharge: Labs from last 24 hours 05/02/18 05/02/18 01:50 01:50 CBC w Diff Auto diff final WBC 8.4 RBC 4.42 Hgb 11.8 Hct 36.8 MCV 83.1 MCH 26.8 L MCHC 32.2 RDW 16.2 Plt Count 394 MPV 8.3 Neut % (Auto) 74.0 H Lymph % (Auto) 20.7 Whitfield % (Auto) 2.6 Eos % (Auto) 2.5 Baso % (Auto) 0.2 Neut # (Auto) 6.3 Lymph # (Auto) 1.7 Whitfield # (Auto) 0.2 Eos # (Auto) 0.2 Baso # (Auto) 0.0 WBC Differential . Differential Comment . Sodium 139 Potassium 3.9 Chloride 107 Carbon Dioxide 26.8 Anion Gap 5 BUN 13 Creatinine 0.89 Estimated GFR 84 L Random Glucose 111 H Calcium 8.6 Total Bilirubin 0.2 AST 15 ALT 22 Alkaline Phosphatase 101 Troponin I Less than 0.02 L Total Protein 7.7 Albumin 3.3 L - Impressions ITS Impressions Head CT 05/02/18 01:31 CONCLUSION: 1. Unremarkable examination. 2. Mild motion artifact. . Discharge Plan - Discharge Disposition Patient Disposition: Discharge Home - Discharge Condition Condition: Fair - Discharge Order Discharge Orders: Discharge Order (Routine); Ordered 05/02/18 Ordered By: Terry Hector - Discharge Details Anticipated Discharge Date: 05/02/18 Discharge Comment: DC TO HOME TODAY - Physicians Team Primary Care Provider: UNKNOWN, Attending Provider: Terry Hector
[2018-05-02 12:25] VITALS: BP 159/88
[2018-05-02 13:06] VITALS: PULSE 83; RESP 20; TEMP 97.8; O2SAT 94
[2018-05-02] MEDS ORDERED: Methocarbamol 500 MG Tablet PO SCH (14:00)
== END 2018-05-02 13:08 | disposition home or self-care (01) ==
LOC: PHED 23:52 → PHEDA 23:52 → PH3 05-02 04:51
PROVIDERS: ADMIT Hospitalist; ATTEND Hospitalist